=== PATIENT | female | born 1970 | race Caucasian/White ===

== ENCOUNTER 2023-03-21 08:05 | Outpatient (CLI) | payer BC, SELFPAY ==
--- NOTE | ~2023-03-21 | MR_ITS ---
MRI of the abdomen: Clinical indication: Postcholecystectomy biliary dilatation. Technique: Coronal SSFSE ARC, WATER:coronal LAVA-FLEX, Coronal 2D FIESTA FatSat, Axial SSFSE BH ARC, Axial 3D DualEcho BH, Axial SSFSE-IR, Axial DWI b=500, Axial 2D FIESTA FatSat, pre and dynamic postco ntrast Axial LAVA ARC, postcontrast Coronal In and Opposed phase LAVA FLEX. Following intravenous adm inistration of 20 cc MultiHance gadolinium, T1-weighted fat-sat imaging was performed in the axial an d coronal planes. Findings: Gallbladder is absent, compatible prior cholecystectomy. The common bile duct is minimally dilated at 7 mm. No filling defects are seen within the CBD. No evidence of intrahepatic biliary duct al dilatation. The pancreatic duct is normal in size. Liver, spleen, pancreas, adrenals, kidneys appear normal. The aorta and the paraaortic regions appear normal. No abnormal postcontrast enhancement seen. Impression: Minimal prominence of the common bile duct is presumably related to prior cholecystectomy. No other significant findings. Reviewed, dictated and finalized at location . Impression: Minimal prominence of the common bile duct is presumably related to prior prasad cystectomy. No other significant findings.
== END 2023-03-21 08:06 | disposition home or self-care (01) ==
LOC: CHSIMG 08:09
PROVIDERS: PCP Internal Medicine; Visit Provider Internal Medicine
DX: K82.8 Other specified diseases of gallbladder (principal); Z90.49 Acquired absence of other specified parts of digestive tract
CPT/HCPCS: 74183; 76376; A9577

== ENCOUNTER 2023-07-03 13:03 | Outpatient (CLI) | payer BC, SELFPAY ==
--- NOTE | ~2023-07-03 | XR_ITS ---
AP view of the pelvis and AP and lateral views of the left hip Clinical history: Pain Findings: No acute fracture or dislocation is seen. Osseous alignment is anatomic. Bilateral hip and SI joint spaces are preserved. Soft tissues are unremarkable. Impression: No significant abnormality is seen. Reviewed, dictated and finalized at [facility]. Impression: No significant abnormality is seen.
--- NOTE | ~2023-07-03 | XR_ITS ---
XR lumbar spine min 4V DATE: 07/03/2023 13:29 INDICATION: Spondylosis without myelopathy or radiculopathy TECHNIQUE: Standing AP and lateral views including standing flexion and extension lateral views COMPARISON: None FINDINGS: There is mild lumbar dextroscoliosis. There is moderately severe degenerative disc disease at L1-2, moderate degenerative disc disease at L 2-3, L3-4. No fracture or bone destruction is detected. There is degenerative change of the apophyseal joints, with associated mild anterolisthesis at L4-5 a nd L5-S1. The sacroiliac joints are normal. Status post cholecystectomy. IMPRESSION: Mild dextroscoliosis and moderate degenerative change Reviewed, dictated and finalized at location B.
== END 2023-07-03 13:04 | disposition home or self-care (01) ==
PROVIDERS: PCP Internal Medicine; Visit Provider Neurological Surgery
DX: M47.816 Spondylosis without myelopathy or radiculopathy, lumbar region (principal); M41.86 Other forms of scoliosis, lumbar region
CPT/HCPCS: 72110; 73502

== ENCOUNTER 2023-09-11 00:37 | Day surgery (SDC) | payer BC, SELFPAY ==
[2023-08-10 09:59] VITALS: BMI 40.0
--- NOTE | 2023-08-24 10:15 | SUR.PREOP ---
Patient called regarding upcoming procedure. patient did not answer- message left with arrival time.
--- NOTE | 2023-08-27 10:55 | PC.NURSE ---
Called and spoke with patient regarding rescheduled procedure. Updated patient with new date and times. Patient denies any changes to medications, allergies, or health history. No questions at this time.
--- NOTE | 2023-09-09 09:25 | SUR.PREOP ---
Patient called regarding upcoming procedure. Reviewed preop instructions, appointment times, and procedure prep.
--- NOTE | 2023-09-10 16:15 | PM.HPGS ---
History of Present Illness History of Present Illness Consent: Risks, benefits, and alternatives have been discussed and questions answered. Patient agrees to proceed with procedure. Chief complaint: GERD,fam hx of other disease of digestive system Narrative: Terri Alonso is a 53 year old female Who is here for investigation of epigastric pain in the right upper quadrant pain for the past 3 or 4 months. Review of Systems Review of Systems: All systems reviewed & are unremarkable except as noted in HPI and below PMFSH Past Medical History Medical History (Updated 09/11/23 @ 12:45 by Joaquín Smith MD) HTN (hypertension) Surgical History Surgical History (Updated 09/11/23 @ 12:46 by Joaquín Smith MD) H/O colonoscopy Family History Family History Mother Hypertension Family history of coronary artery disease Grandparent Diabetes mellitus Father No problems noted. Sibling No problems noted. Other Family history of cardiovascular disease Social History Social History Smoking status: Never smoker Alcohol intake: current Alcohol use details: social Substance use: never Substance use type: does not use Living arrangements: alone Meds Home Medications and Allergies Home Medications Medication Instructions Recorded Confirmed Type amlodipine 5 mg tablet 5 mg PO DAILY 07/03/23 08/10/23 History losartan 100 1 tablet PO DAILY 07/03/23 08/10/23 History mg-hydrochlorothiazide 25 mg tablet potassium chloride 10 mEq 10 meq PO DAILY 07/03/23 08/10/23 History capsule,extended release tramadol 50 mg tablet 50 mg PO Q6H PRN Pain 07/03/23 08/10/23 History Allergies Allergy/AdvReac Type Severity Reaction Status Date / Time No Known Allergies Allergy Verified 09/11/23 12:35 Exam Const: General: alert Orientation/consciousness: patient oriented x3 Resp: Auscultation: clear to auscultation bilaterally Cardio: Rhythm: regular rhythm GI: GI Palp: Yes Soft to palpation and No Tenderness to palpation present (GI) Neuro: General: patient oriented x3 Assessment and Plan Assessment and plan (1) Epigastric pain: Code(s): R10.13 - Epigastric pain Status: Acute Assessment and Plan: EGD with possible biopsy or dilatation or cautery.
[2023-09-11] MEDS: LACTATED RINGERS 1,000 ML 150 ML IV CONT (12:34)
[2023-09-11 12:36] VITALS: BP 130/79; PULSE 87; RESP 18; TEMP 36.1; O2SAT 96
--- NOTE | 2023-09-11 12:45 | WPDANESEPPF ---
Anes - Initial Pre Proc Eval Procedure: Operation Date: 09/11/23 13:30 Proposed Procedures p Esophagogastroduodenoscopy - Bennie Valladares MD Date/Time: 09/11/23 12:45 Surgeon: Bennie Valladares MD Pre Op Diagnosis: GERD,fam hx of other disease of digestive system Patient Data Age: 53 Gender: F Height: 1.75 m Weight: 120.1 kg Last Vital Signs Temp 36.1 C L 09/11/23 12:36 Pulse 87 09/11/23 12:36 Resp 18 09/11/23 12:36 BP 130/79 09/11/23 12:36 Pulse Ox 96 09/11/23 12:36 O2 Del Method Room Air 09/11/23 12:36 Allergies Allergy/AdvReac Type Severity Reaction Status Date / Time No Known Allergies Allergy Verified 09/11/23 12:35 Home Medications Medication Instructions Recorded Confirmed Type amlodipine 5 mg tablet 5 mg PO DAILY 07/03/23 08/10/23 History losartan 100 1 tablet PO DAILY 07/03/23 08/10/23 History mg-hydrochlorothiazide 25 mg tablet potassium chloride 10 mEq 10 meq PO DAILY 07/03/23 08/10/23 History capsule,extended release tramadol 50 mg tablet 50 mg PO Q6H PRN Pain 07/03/23 08/10/23 History Patient hx anesthesia problems: none Family hx anesthesia problems: none Results Review: All pre-operative results and documents have been reviewed as part of the pre-operative evaluation. [facility] Past Medical History Medical History (Updated 09/11/23 @ 12:45 by Joaquín Smith MD) HTN (hypertension) Surgical History Surgical History (Updated 09/11/23 @ 12:46 by Joaquín Smith MD) H/O colonoscopy Family History Family History Mother Hypertension Family history of coronary artery disease Grandparent Diabetes mellitus Father No problems noted. Sibling No problems noted. Other Family history of cardiovascular disease Social History Social History Smoking status: Never smoker Alcohol intake: current Alcohol use details: social Substance use: never Substance use type: does not use Living arrangements: alone Anes - Eval Final PreProcedure Day of Procedure 09/11/23 12:45 Patient weight: obese Heart: regular rate and rhythm Lungs: clear to auscultation Airway: Mallampati scale class II Neurological: alert and oriented Last oral intake: >/= 8 hours ASA classification: III Emergent: no Anesthetic plan: proceed Anesthesia type and monitoring: general GIVS and standard monitoring Results Review: All pre-operative results and documents have been reviewed as part of the pre-operative evaluation. Informed Consent: The patient's anesthetic plan and its attendant risks and benefits were discussed with the patient/family/POA. Questions were solicited and answers provided to the satisfaction of the patient/family/POA.
[2023-09-11 13:26] VITALS: BP 128/80; PULSE 76; RESP 18; O2SAT 97
[2023-09-11 13:36] VITALS: BP 133/87; PULSE 73; RESP 18; O2SAT 98
[2023-09-11 13:46] VITALS: BP 133/81; PULSE 79; RESP 17; O2SAT 99
== END 2023-09-11 14:23 | disposition home or self-care (01) ==
PROVIDERS: PCP Internal Medicine; Visit Provider Internal Medicine Gastroenterology
PROC: 0DJ08ZZ Inspection of Upper Intestinal Tract, Via Natural or Artificial Opening Endoscopic (ICD-10-PCS; CPT 43235; principal; 2023-09-11 13:30)
DX: K21.00 Gastro-esophageal reflux disease with esophagitis, without bleeding (principal); I10 Essential (primary) hypertension; E66.9 Obesity, unspecified; Z68.39 Body mass index [BMI] 39.0-39.9, adult
CPT/HCPCS: 43239; 87081; 88305; J2704; J7120

== ENCOUNTER 2023-10-20 07:20 | Outpatient (CLI) | payer BC, SELFPAY ==
--- NOTE | ~2023-10-20 | US_ITS ---
EXAMINATION: US pelvic complete w TV DATE: 10/20/2023 08:21 INDICATION: Postmenopausal bleeding Comparison:No prior studies for comparison. TECHNIQUE: Multiple transabdominal and endovaginal sonographic images of the pelvis performed. FINDINGS: The uterus measures 7.9 x 5.3 x 4.1 cm. There are small hypoechoic measuring up to 1.7 cm, likely, located nabothian cysts or fibroids. The endometrial complex measures 10 mm. The right ovary measures 2.7 x 1.5 x 2 cm and the left ovary measures 2 x 1.5 x 1.6 cm. There are sm all follicles in each ovary. Normal doppler signal in both ovaries. There is no free fluid in the pelvis. There are no abnormal masses seen on either side. IMPRESSION: 1. Hypoechoic masses at the cervix measuring up to 1.7 cm which may represent a complicated nabothian cysts or fibroids. Reviewed, dictated and finalized at location L. [facility]
== END 2023-10-20 07:21 | disposition home or self-care (01) ==
LOC: CHSIMG 07:22
PROVIDERS: PCP Internal Medicine; Visit Provider Internal Medicine
DX: N88.8 Other specified noninflammatory disorders of cervix uteri (principal); N93.8 Other specified abnormal uterine and vaginal bleeding
CPT/HCPCS: 76830; 76856

== ENCOUNTER 2023-12-25 15:17 | Outpatient (CLI) | payer BC, SELFPAY ==
[2023-12-25 16:37] LABS: Anion Gap 11 mmol/L (4-12); Blood Urea Nitrogen 16 mg/dL (7-18); Calcium 9.5 mg/dL (8.5-10.1); Carbon Dioxide 28 mmol/L (21-32); Chloride 101 mmol/L (98-108); Estimated Glomerular Filt Rate 55; Glucose 139 mg/dL (70-99); Osmolality Calculated 293 mOsm/kg (285-295); Potassium 3.5 mmol/L (3.5-5.1); Sodium 140 mmol/L (136-145)
== END 2023-12-25 15:18 | disposition home or self-care (01) ==
PROVIDERS: PCP Internal Medicine; Visit Provider Anesthesiology
DX: Z01.818 Encounter for other preprocedural examination (principal); Z79.899 Other long term (current) drug therapy
CPT/HCPCS: 36415; 80048

== ENCOUNTER 2024-01-01 01:21 | Day surgery (SDC) | payer BC, SELFPAY ==
[2023-12-23 14:06] VITALS: BMI 39.9
--- NOTE | 2023-12-23 14:12 | PC.NURSE ---
Report to the Outpatient Waiting Room, entrance under the green pavilion located off [facility], at time 6:30 on date 01/01/24. Planned Procedure Time: 8:30. Time changes happen often and if your time is changed the preop area will call you the afternoon before. - You and your visitor will be asked to self-screen and do not enter if you have any COVID symptoms. - A mask is optional within the hospital at this time. Patients may have clear liquids (water, carbonated beverages, clear teas, apple juice) until 3 hours prior to surgery with a maximum of 20 ounces. - No food from midnight until time of surgery Take the following medications with a SIP of water the morning of surgery: AMLODIPINE, GABAPENTIN IF NEEDED DO NOT STOP ANY OF YOUR OTHER PRESCRIPTION MEDICATIONS PRIOR TO SURGERY ?EXCEPT THE FOLLOWING Medications to discontinue per physician: VITAMINS/SUPPLEMENTS Date to take last dose: 12/28/23 Please no make-up, nail azeri, hairspray, perfume, deodorant, or body powder the day of surgery. No jewelry (including any body piercings) or valuables the day of surgery, leave them at home. Please take a shower or bath the night before, or the morning of, surgery with an antibacterial soap. Wear comfortable, loose fitting clothing. - Jewelry must be removed prior to entering the operating room. Rings and piercings that are not removed may be cut off. - The hospital will not accept responsibility for valuables. - Please leave all valuables, including medications, at home the day of surgery. If you are going home after surgery, a licensed public transit bus driver must drive you home. - NO public transportation without another adult if you receive anesthesia. - We recommend that an adult stay with you for 24 hours following discharge. - We also recommend that you do not drive, make important decision, drink alcoholic beverages, or take any drugs that were not prescribed by your health care provider for at least 24 hours after your discharge time. Follow any additional instructions given to you from your surgeon. If you or anyone in your household have experienced Covid symptoms in the past week, please notify your surgeon or the nurse liaison at the phone number below for possible testing. Telephone instructions given to BIA LEGER and asked if any additional questions and then verbalized understanding. Patient advised to call surgeon office or pre surgery nurse liaison [phone] if any additional questions.
--- NOTE | 2023-12-31 11:26 | WPDANESEPPF ---
Anes - Initial Pre Proc Eval Procedure: Operation Date: 01/01/24 10:00 Proposed Procedures p Hysteroscopy, Dilation and Curettage with Removal Endometrial Lesion if Necessary - Jv Lr MD Date/Time: 12/31/23 11:26 Surgeon: Jv Lr MD Pre Op Diagnosis: thick endometrial lining Patient Data Age: 53 Gender: F Height: 1.75 m Weight: 122.5 kg Allergies Allergy/AdvReac Type Severity Reaction Status Date / Time No Known Allergies Allergy Verified 01/14/24 08:15 Home Medications Medication Instructions Recorded Confirmed Type amlodipine 5 mg tablet 5 mg PO DAILY 07/03/23 01/01/24 History losartan 100 1 tablet PO DAILY 07/03/23 01/01/24 History mg-hydrochlorothiazide 25 mg tablet potassium chloride 10 mEq 10 meq PO DAILY 07/03/23 01/01/24 History capsule,extended release pantoprazole 40 mg tablet,delayed 40 mg PO QAM #30 tabs 09/11/23 01/01/24 Rx release gabapentin 300 mg capsule 300 mg PO DAILY 10/28/23 01/01/24 History magnesium 200 mg tablet 200 mg PO DAILY 10/28/23 01/01/24 History Patient hx anesthesia problems: none Family hx anesthesia problems: none Results Review: All pre-operative results and documents have been reviewed as part of the pre-operative evaluation. PENDING SALE TO [facility] Past Medical History Medical History History of chlamydia 1988 History of miscarriage HTN (hypertension) Surgical History Surgical History H/O colonoscopy H/O tubal ligation History of 3 sections History of cholecystectomy S/P hernia surgery Family History Family History Mother Hypertension Family history of coronary artery disease Grandparent Diabetes mellitus Father No problems noted. Sibling No problems noted. Other Alcoholism Breast cancer Cerebrovascular accident Family history of cardiovascular disease Social History Social History Smoking packs per day: 1 Smoking cigarettes per day: 20.0 Years smoked: 20 Smoking pack-years: 20.00 Smoking status: Former smoker Tobacco type: cigarettes Smoking end date: 09/28/12 Alcohol intake: current Alcohol use details: VERY RARE Substance use: never Substance use type: does not use Do You Feel Safe in your Home?: Yes Lack of Transportation: No Lack of Food: Never True Current Housing: I Have Housing Concerned About Future Housing: No Difficulty Paying Gas/Electric Bills: No Difficulty Paying for Meds: No Currently Unemployed: No Living arrangements: with family Spiritual care concerns: No Anes - Eval Final PreProcedure Day of Procedure 12/31/23 11:26 Patient weight: obese Heart: regular rate and rhythm Lungs: clear to auscultation Airway: Mallampati scale class II Neurological: alert and oriented Last oral intake: >/= 8 hours ASA classification: III Emergent: no Anesthetic plan: proceed Anesthesia type and monitoring: general GIVS and standard monitoring Results Review: All pre-operative results and documents have been reviewed as part of the pre-operative evaluation. Informed Consent: The patient's anesthetic plan and its attendant risks and benefits were discussed with the patient/family/POA. Questions were solicited and answers provided to the satisfaction of the patient/family/POA.
[2024-01-01 08:01] VITALS: BP 143/87; PULSE 90; RESP 20; TEMP 36.5; O2SAT 94
--- NOTE | 2024-01-01 08:37 | PM.IMHP ---
H&P: HPI History of Present Illness Date/Time: 01/01/24 08:37 Chief Complaint: Postmenopausal bleeding Narrative: Patient with postmenopausal bleeding. Pelvic ultrasound showed 10mm stripe. She was informed this is abnormally thickened and recommended for endometrial sampling and she has opted for dilation and curettage and hysteroscopy. [facility] Past Medical History Medical History History of chlamydia 1988 History of miscarriage HTN (hypertension) Surgical History Surgical History H/O colonoscopy H/O tubal ligation History of 3 sections History of cholecystectomy S/P hernia surgery Family History Family History Mother Hypertension Family history of coronary artery disease Grandparent Diabetes mellitus Father No problems noted. Sibling No problems noted. Other Alcoholism Breast cancer Cerebrovascular accident Family history of cardiovascular disease Social History Social History Smoking packs per day: 1 Smoking cigarettes per day: 20.0 Years smoked: 20 Smoking pack-years: 20.00 Smoking status: Former smoker Tobacco type: cigarettes Smoking end date: 09/28/12 Alcohol intake: current Alcohol use details: VERY RARE Substance use: never Substance use type: does not use Do You Feel Safe in your Home?: Yes Lack of Transportation: No Lack of Food: Never True Current Housing: I Have Housing Concerned About Future Housing: No Difficulty Paying Gas/Electric Bills: No Difficulty Paying for Meds: No Currently Unemployed: No Living arrangements: with family Spiritual care concerns: No Meds Home Medications and Allergies Home Medications Medication Instructions Recorded Confirmed Type amlodipine 5 mg tablet 5 mg PO DAILY 07/03/23 12/23/23 History losartan 100 1 tablet PO DAILY 07/03/23 12/23/23 History mg-hydrochlorothiazide 25 mg tablet potassium chloride 10 mEq 10 meq PO DAILY 07/03/23 12/23/23 History capsule,extended release pantoprazole 40 mg tablet,delayed 40 mg PO QAM #30 tabs 09/11/23 12/23/23 Rx release gabapentin 300 mg capsule 300 mg PO DAILY 10/28/23 12/23/23 History magnesium 200 mg tablet 200 mg PO DAILY 10/28/23 12/23/23 History Allergies Allergy/AdvReac Type Severity Reaction Status Date / Time No Known Allergies Allergy Verified 12/23/23 14:05 Assessment and Plan Assessment and plan (1) Postmenopausal bleeding: Code(s): N95.0 - Postmenopausal bleeding Status: Acute Assessment and Plan: Will proceed with dilation and curettage and hysteroscopy and removal of endometrial lesion if present.
--- NOTE | 2024-01-01 08:38 | WPDHPUPDATE1 ---
History and Physical Update Update Date/Time: 01/01/24 08:38 History and Physical has been reviewed, including an updated exam of the patient. There are NO changes in the patient's condition. Risks, benefits, and alternatives have been discussed and questions answered. Patient agrees to proceed with procedure.
[2024-01-01] MEDS: ACETAMINOPHEN 500 MG TABLET 1000 MG PO (09:01)
[2024-01-01] MEDS: LACTATED RINGERS 1,000 ML 30 ML IV CONT (09:05)
[2024-01-01] MEDS: ceFAZolin 3 GM/D5W 100 ML 100 ML IVPB (09:50)
[2024-01-01] MEDS: LIDOCAINE HCL 1% LOCAL INJ 10 ML VIAL INFILTRATE (10:09)
[2024-01-01 10:18] VITALS: BP 132/82; PULSE 93; RESP 14; O2SAT 94
--- NOTE | 2024-01-01 10:25 | W.PM.PROC2 ---
Procedure Note - Detailed Date of Procedure 01/01/24 Pre-op Diagnosis thick endometrial lining Post-op Diagnosis Same Procedure Performed Diagnostic hysteroscopy with dilation and curettage Surgeon Jv Lr MD Anesthesia MAC and Local Indications Postmenopausal bleeding Findings Uterine cavity normal Description of Procedure After informed consent was obtained patient was taken to the operating room and adequate IV sedation was administered. Attention was turned to the vagina. Speculum was inserted. Single-tooth tenaculum placed on the anterior lip of the cervix. 1% lidocaine was injected at cervicovaginal interface at 2,5,8,10 position. The uterus was sounded to 8 cm. The cervix was dilated to an 8 Agrawal dilator. The hysteroscope was inserted into the cavity. The findings were a normal uterine cavity. The hysteroscope was removed. The single-tooth tenaculum was removed hemostasis was noted at the tenaculum site. Sponge count correct. The patient taken to recovery in stable condition. Estimated Blood Loss 5 Drains No Packing No Pathology Yes (endometrial curettings) Complications No immediate complications Condition Stable Disposition Same day [facility] Billing Surgery - Charge Forward: Surgery Billing
[2024-01-01 10:30] VITALS: BP 143/92; PULSE 77; O2SAT 97
[2024-01-01 11:00] VITALS: BP 138/92; PULSE 67; O2SAT 97
[2024-01-01] MEDS: oxyCODONE HCL (*CRX) 5 MG TAB IR PO (11:07)
[2024-01-01 11:30] VITALS: BP 145/90; PULSE 69
== END 2024-01-01 11:42 | disposition home or self-care (01) ==
PROVIDERS: PCP Internal Medicine; Visit Provider Obstetrics & Gynecology
PROC: 0U5B8ZZ Destruction of Endometrium, Via Natural or Artificial Opening Endoscopic (ICD-10-PCS; CPT 58563; principal; 2024-01-01 10:00)
DX: N85.8 Other specified noninflammatory disorders of uterus (principal); N95.0 Postmenopausal bleeding; I10 Essential (primary) hypertension; Z87.891 Personal history of nicotine dependence; E66.9 Obesity, unspecified; Z68.41 Body mass index [BMI] 40.0-44.9, adult
CPT/HCPCS: 58558; 88305; A9270; J0690; J1100; J2250; J2405; J2704; J3010; J7120

== ENCOUNTER 2024-09-02 11:07 | Outpatient (CLI) | payer BC, SELFPAY ==
--- NOTE | ~2024-09-02 | US_ITS ---
EXAMINATION: US pelvic complete w TV INDICATION: Postmenopausal bleeding Comparison:Ultrasound dated 10/20/2023 TECHNIQUE: Multiple transabdominal and endovaginal sonographic images of the pelvis performed. FINDINGS: The uterus measures 8.6 x 4.2 x 5.4 cm. The endometrial complex measures 8 mm. There are complicated nabothian cyst measuring up to 2 cm. The right ovary measures 2.9 x 2.1 x 2.7 cm and the left ovary measures 2.1 x 1.9 x 1.8 cm. There ar e small follicles in each ovary. Normal doppler signal in both ovaries. There is no free fluid in the pelvis. There are no abnormal masses seen on either side. IMPRESSION: 1. Thickened endomtrial complex. The differential diagnosis includes endometrial hyperplasia, polyp a nd carcinoma. Biopsy is recommended. Reviewed, dictated and finalized at location B. [employer] [facility] IMPRESSION: 1. Thickened endomtrial complex. The differential diagnosis includes endometria l hyperplasia, polyp and carcinoma. Biopsy is recommended.
== END 2024-09-02 11:08 | disposition home or self-care (01) ==
LOC: MICIMG 11:07
PROVIDERS: PCP Obstetrics & Gynecology; Visit Provider Obstetrics & Gynecology
DX: R93.89 Abnormal findings on diagnostic imaging of other specified body structures (principal); N95.0 Postmenopausal bleeding
CPT/HCPCS: 76830; 76856

== ENCOUNTER 2025-02-22 08:18 | Outpatient (CLI) | payer BC, SELFPAY ==
--- NOTE | ~2025-02-22 | US_ITS ---
Pelvic ultrasound. Clinical History: Abnormal findings on diagnostic imaging Technique: Realtime transabdominal and transvaginal scanning of the pelvis was performed. Color flow Doppler and Doppler spectral analysis were performed. Findings: The uterus is anteverted. The endometrial stripe has a thickness of 5 mm. Possible subtle ill-defined submucosal and anterior wall intramural fibroids, largest measuring 2.1 cm in diameter.. Mildly complex cervical nabothian cysts present, measuring up to 1.5 cm in diameter. The right ovary measures 2.5 x 1.8 x 3.0 cm. No significant right ovarian or adnexal mass is seen. The left ovary measures 1.8 x 1.0 x 2.3 cm. No significant left ovarian or adnexal mass is seen. There is no evidence of free fluid in the cul de sac. Impression: Possible ill-defined uterine fibroids, as detailed above. Reviewed, dictated and finalized at [facility]. Impression: Possible ill-defined uterine fibroids, as detailed above.
== END 2025-02-22 08:19 | disposition home or self-care (01) ==
PROVIDERS: PCP Obstetrics & Gynecology; Visit Provider Obstetrics & Gynecology
DX: R93.89 Abnormal findings on diagnostic imaging of other specified body structures (principal)
CPT/HCPCS: 76830; 76856

== ENCOUNTER 2025-02-28 14:52 | Outpatient (CLI) | payer BC, SELFPAY ==
--- NOTE | ~2025-02-28 | XR_ITS ---
XR chest 2V Ordering provider: Dayron Francis MD History: 55 years Female with . URI, COUGH . Comparison: August 03, 2005 FINDINGS: MEDIASTINUM: The cardiac silhouette is not enlarged. LUNGS: No effusions or pneumothorax. Prominent bronchovascular markings in the lower lobes with minimal opacification suggestive of early bronchopneumonia. OTHER: No free air under the diaphragm. IMPRESSION: Prominent bibasilar bronchovascular markings with minimal opacification suggestive of bronchopneumoni a. Follow-up advised. Reviewed, dictated and finalized at location A. IMPRESSION: Prominent bibasilar bronchovascular markings with minimal opacification suggest john of bronchopneumonia. Follow-up advised.
--- OUTSIDE RECORDS SUMMARY | 2025-02-28 15:00 | XMS_ITS | Referral Summary ---
Author Organization [facility] Address [address] [place] [address] Care Team Providers Care Truck Service Manager Name Role Phone Dayron Francis MD Primary Care Provider + [phone] Encounters Date Type Department Care Team Description 02/23/2025 Patient Message [facility] [address] [facility] [address] [place] [address] Amilcar Page PA Referral Request 02/16/2025 Telephone [facility] [address] [place] [address] Braydno Marsh, Zakia 12/26/2024 11:45 AM CDT Office Visit [facility] [address] [facility] [address] [place] [address] Amilcar Page PA Short-term memory loss (Primary Dx); Perineural cysts; Tarlov cysts; Tinnitus aurium, bilateral; Intractable cluster headache syndrome, unspecified chronicity pattern; Syrinx of spinal cord (HCC); Status post cervical spinal fusion; Cervical spondylosis without myelopathy 12/15/2024 7:00 AM CDT - 12/15/2024 11:59 PM CDT Hospital Encounter [facility] Diagn[facility] [address] [place] [address] Tarlov cysts; Cervical spondylosis without myelopathy; Syrinx of spinal cord (HCC); Perineural cysts; Tinnitus aurium, bilateral; Intractable cluster headache syndrome, unspecified chronicity pattern; Short-term memory loss; Status post cervical spinal fusion Discharge Disposition: Discharge to home or self care 12/02/2024 Documentation [facility] [address] [facility] [address] [place] [address] Amilcar Page PA from Last 3 Months Allergies No known active allergies Medications potassium chloride ER 20 mEq CR tablet Take 1 tablet (20 mEq total) by mouth every morning Active losartan-hydroc hlorothiazide (HYZAAR) 100-25 mg per tablet Take 1 tablet by mouth every morning Active amLODIPine (NORVASC) 5 mg tablet Take 1 tablet (5 mg total) by mouth every morning Active topiramate (TOPAMAX) 50 mg tablet Take 1 tablet (50 mg total) by mouth every morning Active phentermine 37.5 mg capsule Take 1 capsule (37.5 mg total) by mouth every morning Active acetaminophen (TYLENOL) 325 mg tablet Take 2 tablets (650 mg total) by mouth every 6 (six) hours as needed for pain Active ASHWAELADIODHA ROOT EXTRACT ORAL Take by mouth daily Active calcium carb/vitamin D3/vit K1 (CALCIUM-VITAMI N D3-VITAMIN K ORAL) Take by mouth daily Active calcium carb,cit-mag cit,ox-D3 300 mg-150 mg- 400 unit tablet 4 Active collagen-biotin -ascorbic acid (Collagen 1500 Plus C) 500 mg-800 mcg- 50 mg capsule 4 Active ibuprofen (ADVIL,MOTRIN) 800 mg tablet 3 Active progesterone (PROMETRIUM) 100 mg capsule 4 Active multivitamin tabletIndicatio ns:Vitamin Deficiency Prevention Take 1 tablet by mouth applicator sprayer before breakfast Active acidophilus-pec tin, citrus 100 million cell-10 mg capsule Take by mouth applicator sprayer before breakfast Active UNABLE TO FIND Med Name: Mirica (PEA) 2-4 per Day *For nerve pain Active cyclobenzaprine (FLEXERIL) 10 mg tablet Take 1 tablet (10 mg total) by mouth 3 (three) times a day as needed Active Active Problems Problem Noted Date Diagnosed Date 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 Never 08/15/2024 Q2: How many drinks containi ng alcohol do you have on a typical day when you are drinking? Patient does not drink Q3: How often do you have si x or more drinks on one occasion? Never 08/15/2024 Personal Safety Answer Date Recorded Have you ever been in or are you currently in a harmful physical or emotional relationship or is someone making you feel afraid or unsafe? Denies 08/15/2024 Comments No Sex and Gender Information Value Date Recorded Sex Assigned at Not on file Legal Sex Female 1:52 AM RESOURCE TECHNICIAN Gender Identity Female 10/07/2024 5:41 PM RESOURCE TECHNICIAN Sexual Orientation Not on file Last Filed Vital Signs Vital Sign Reading Time Taken Comments Blood Pressure 114/74 12/26/2024 11:47 AM CDT Pulse 97 12/26/2024 11:47 AM CDT Temperature 36.6 C (97.9 F) 08/16/2024 11:31 AM RESOURCE TECHNICIAN Respiratory Rate 14 10/25/2024 11:27 AM RESOURCE TECHNICIAN Oxygen Saturation 94% 12/26/2024 11:47 AM CDT Inhaled Oxygen Concentration - - Weight 117.9 kg (260 lb) 12/26/2024 11:47 AM CDT Height 175.3 cm (5' 9) 12/26/2024 11:47 AM CDT Body Mass Index 38.4 12/26/2024 11:47 AM CDT Plan of Treatment Not on file Medical Devices Implanted Type Area Chief Physical Therapist Device Identifier Shelf Expiration Date Model / Serial / Lot One Parts [employer] Allograft Bone Putty 2.5cc 700- - [id number] Implanted:Qty: 1 on 08/15/2024 by Debbie Restrepo MD at [facility] N/A: Spine Cervical [employer] Inc [id number] 11/25/2026 700-025 / / [id number] Orthofix Spinal Implants Cage Spinal Cervical 5 Degree Acdf Mini Construx [id number] Titanium 37-7005sp - [id number] Implanted:Qty: 1 on 08/15/2024 by Debbie Restrepo MD at [facility] N/A: Spine Cervical Orth[employer]ix Spinal Implants 01/14/2026 37-7005SP / / 002 Orthofix Spinal Implants Cage Spinal Cervical 5 Degree Acdf Mini Construx [id number] Titanium 37-7005sp - [id number] Implanted:Qty: 1 on 08/15/2024 by Debbie Restrepo MD at [facility] N/A: Spine Cervical Orthofix Spinal Implants 07/10/2026 37-7005SP / / 003 Orthofix Spinal Implants Cage Spinal Cervical 5 Degree Acdf Mini Construx [id number] Titanium 37-7006sp - [id number] Implanted:Qty: 1 on 08/15/2024 by Debbie Restrepo MD at [facility] N/A: Spine Cervical Orthofix Spinal Implants 08/27/2027 37-7006SP / / 012 [employer]c Plate Cervical Spine 3-Level 45mm 300-0345 - [id number] Implanted:Qty: 1 on 08/15/2024 by Debbie Restrepo MD at [facility] N/A: Spine Cervical [employer] 300-0345 / / [employer]av[employer] Llc Screw Self Drilling Variable 4.0x14mm [id number] - [id number] Implanted:Qty: 8 on 08/15/2024 by Debbie Restrepo MD at [facility] N/A: Spine Cervical [employer]c [id number] / / Procedures Procedure Name Priority Date/Time Associated Diagnosis Comments EMG/NCV Routine 12/15/2024 8:10 AM CDT Tarlov cysts Cervical spondylosis without myelopathy Syrinx of spinal cord (HCC) Perineural cysts Tinnitus aurium, bilateral Intractable cluster headache syndrome, unspecified chronicity pattern Short-term memory loss Status post cervical spinal fusion from Last 3 Months Results * EMG/NCV - (12/15/2024 8:10 AM CDT) Anatomical Region Laterality Modality EMG Impressions 12/15/2024 8:56 AM CDT No abnormalities noted on the above study. It should be noted that a normal EMG examination does not entirely rule out the possibility of a radiculopathy. Joaquín Orozco M.D., Ph.D. To review tabular data please click on the NEUROLOGY-RESULTS link below. Dictation completed by [employer] software. Student Assistance Counselor variances may occur. Narrative 12/15/2024 8:56 AM CDT NCV/EMG REPORT REFERRING PHYSICIAN: Amilcar Page PA INDICATION: Query polyneuropathy. Query lumbosacral radiculopathy. The procedure and possible complications were explained to the patient and a verbal consent was obtained. The temperature was maintained at 30 C or higher in the feet and 32 C or higher in the hands for nerve conduction studies unless otherwise stated. FINDINGS: The distal motor latencies, conduction velocities and CMAP amplitudes of the right and left peroneal and tibial nerves are normal. The distal sensory latencies and snap amplitudes of the right and left sural nerves are normal. No abnormalities noted on EMG examination of selected muscles in the left lower extremity, currently her most symptomatic side. Muscles examined included the left tibialis anterior, medial gastrocnemius, peroneus longus, vastus medialis and short head of the biceps femoris. Amilcar KEITH NEUROLOGY ORDERABLES Eloise l Result from Last 3 Months Insurance [facility] [place]PO [place] Advance Directives For more information, please contact: [phone] * Full Code (Latest Code Status on File) Date Activated Date Inactivated Comments 08/15/2024 7:43 PM 08/16/2024 4:37 PM Care Teams Truck Service Manager Relationship Specialty Start Date End Date Dayron Francis MD [address] [place] [address] PCP - General Internal Medicine 08/15/24
--- OUTSIDE RECORDS SUMMARY | 2025-02-28 15:00 | XMS_ITS | Clinical Summary ---
Author Organization [facility] Address [address] [place] [address] Care Team Providers Care Director Of Annual Giving Name Role Phone Dayron Francis MD Primary Care Provider + [phone] Allergies No known active allergies Medications potassium [...] (six) hours as needed for pain Active ASHWAGANDHA ROOT EXTRACT ORAL Take by mouth daily [...] Deficiency Prevention Take 1 tablet by mouth conductor/brakeman before breakfast Active acidophilus-pec tin, citrus 100 million cell-10 mg capsule Take by mouth conductor/brakeman before breakfast Active UNABLE TO FIND Med Name: Mirica (PEA) 2-4 per Day *For nerve pain Active cyclobenzaprine (FLEXERIL) 10 mg tablet Take 1 tablet (10 mg total) by mouth 3 (three) times a day as needed Active Active Problems Problem Noted Date Diagnosed Date 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 Cervical spondylosis without myelopathy 07/20/20 24 Encounters Date Type Department Care Team Description 02/23/2025 Patient Message [facility] [address] [place] [address] Amilcar Page PA Referral Request 02/16/2025 Telephone [facility] Floor [address] [place] [address] Braydon Marsh RMA 12/26/2024 11:45 AM CDT Office Visit [facility] [address] [place] [address] Amilcar Page PA Short-term memory loss (Primary Dx); Perineural cysts; Tarlov cysts; Tinnitus aurium, bilateral; Intractable cluster headache syndrome, unspecified chronicity pattern; Syrinx of spinal cord (HCC); Status post cervical spinal fusion; Cervical spondylosis without myelopathy 12/15/2024 7:00 AM CDT - 12/15/2024 11:59 PM CDT Hospital Encounter [facility] Diagnostics [address] [place] [address] Tarlov cysts; Cervical spondylosis without myelopathy; Syrinx of spinal cord (HCC); Perineural cysts; Tinnitus aurium, bilateral; Intractable cluster headache syndrome, unspecified chronicity pattern; Short-term memory loss; Status post cervical spinal fusion Discharge Disposition: Discharge to home or self care 12/02/2024 Documentation [facility] [address] [facility] [address] [place] [address] Amilcar Page PA from Last 3 Months Surgical History Surgery Date Site/Laterality Comments CHOLECYSTECTOMY 09/28/2013 - 09/27/2014 HERNIA REPAIR 09/28/2012 - 09/27/2013 umblicial SECTION x3 (1986, 1992, 2002) ANTERIOR FUSION CERVICAL SPINE 09/28/2023 - 09/27/2024 C4-7 - Dr. Restrepo Medical History Medical History Date Comments Hypertension Anxiety Depression Family History Medical History Relation Name Comments Diabetes Maternal Grandmother Hypertension Mother Stroke Paternal Grandmother Breast cancer Sister Relation Name Status Comments Maternal Grandmother Mother Paternal Grandmother Sister Social History Tobacco Use Types Packs/Day Years [...] on file Legal Sex Female 1:52 AM LOUVER MORTISER OPERATOR Gender Identity Female 10/07/2024 5:41 PM LOUVER MORTISER OPERATOR Sexual Orientation Not on file Obstetrics History Last Filed Vital Signs Vital Sign Reading Time Taken Comments Blood Pressure 114/74 12/26/2024 11:47 AM CDT Pulse 97 12/26/2024 11:47 AM CDT Temperature 36.6 C (97.9 F) 08/16/2024 11:31 AM LOUVER MORTISER OPERATOR Respiratory Rate 14 10/25/2024 11:27 AM LOUVER MORTISER OPERATOR Oxygen Saturation 94% 12/26/2024 11:47 AM CDT Inhaled Oxygen Concentration - - Weight 117.9 kg (260 lb) 12/26/2024 11:47 AM CDT Height 175.3 cm (5' 9) 12/26/2024 11:47 AM CDT Body Mass Index 38.4 12/26/2024 11:47 AM CDT Plan of Treatment Health Maintenance Due Date Last Done Comments Cervical Cancer Screening 1970 Colon Cancer Screening-Colonoscopy 1970 Depression Screening 1970 Hepatitis C Screening 1970 Hepatitis B Screening 01/06/1988 Regular Well Visit/Exam 18-64 01/06/1988 Influenza Vaccine (Season Ended) 2025 Breast Cancer Screening-Mammogram 11/29/2025 11/29/2024, 11/29/2024 DTaP/Tdap/Td Vaccine (2 - Td or Tdap) 10/15/2033 10/15/2023 Zoster Vaccine Completed 01/18/2024, 10/15/2023 Pneumococcal vaccine <65 Aged Out No longer eligible based on patient's age to complete this topic Medical Devices Implanted Type Area Fountain Pen Turner Device Identifier Shelf Expiration Date Model / Serial / Lot [employer] Inc Allograft Bone Putty 2.5cc 700-025 - [id number] Implanted:Qty: 1 on 08/15/2024 by Debbie Restrepo MD at [facility] N/A: Spine Cervical [employer] Inc [id number] 11/25/2026 700-025 / / [id number] Orthofix Spinal Implants Cage Spinal Cervical 5 Degree Acdf Mini Construx [id number] Titanium 37-7005sp - [id number] Implanted:Qty: 1 on 08/15/2024 by Debbie Restrepo MD at [facility] N/A: Spine Cervical Orth[employer]ix Spinal Implants 01/14/2026 37-7005SP / / 002 Orthofix Spinal Implants Cage Spinal Cervical 5 Degree Acdf Mini Construx [id number] Titanium 37-7005sp - [id number] Implanted:Qty: 1 on 08/15/2024 by Debbie Restrepo MD at [facility] N/A: Spine Cervical Orth[employer]ix Spinal Implants 07/10/2026 37-7005SP / / 003 Orthofix Spinal Implants Cage Spinal Cervical 5 Degree Acdf Mini Construx [id number] Titanium 37-7006sp - [id number] Implanted:Qty: 1 on 08/15/2024 by Debbie Restrepo MD at [facility] N/A: Spine Cervical Orth[employer]ix Spinal Implants 08/27/2027 37-7006SP / / 012 [employer] Llc Plate Cervical Spine 3-Level 45mm 300-0345 - [id number] Implanted:Qty: 1 on 08/15/2024 by Debbie Restrepo MD at [facility] N/A: Spine Cervical Zavation [facility] 300-0345 / / Zavation [facility] Screw Self Drilling Variable 4.0x14mm 301-4724 - [id number] Implanted:Qty: 8 on 08/15/2024 by Debbie Restrepo MD at [facility] N/A: Spine Cervical Zavation [facility] [id number] / / Procedures Procedure Name Priority Date/Time [...] the NEUROLOGY-RESULTS link below. Dictation completed by [employer] software. Loss Prevention Consultant variances may occur. Narrative 12/15/2024 8:56 AM [...] l Result from Last 3 Months Insurance [place] Advance Directives For more information, please contact: [phone] * Full Code (Latest Code Status on File) Date Activated Date Inactivated Comments 08/15/2024 7:43 PM 08/16/2024 4:37 PM Care Teams Director Of Annual Giving Relationship Specialty Start Date End Date Dayron Francis MD [address] [place] [address] PCP - General Internal Medicine 08/15/24
--- OUTSIDE RECORDS SUMMARY | 2025-02-28 15:00 | XMS_ITS | Encounter Summary ---
Author Organization [facility] Address [address] [place] [address] Care Team Providers Care Legal Examiner Name Role Phone Dayron Francis MD Primary Care Provider + [phone] Reason for Referral * Consultation (Routine) - Pending Review Specialty Diagnoses / Procedures Referred By Contac t Referred To Contact Neurosurgery Diagnoses Perineural cysts Tarlov cysts Amilcar Page PA [address] [place] [address] Phone: tel: fax: Peter Sampson MD [address] [facility] [address] [place] [address] Phone: tel: fax: Referral ID Status Reason Start Date Expiration Date Visits Requested Visits Authorized [id number] Pending Review Specialty Services Required 02/23/2025 03/25/2026 3 3 Question Answer Please select the performing region: External Order [171] To provider: PETER SAMPSON [[id number]] # of visits: 3 Comments Neurosurgery referral; Tarlov cyst Encounter Details Date Type Department Care Team (Late st Contact Info) Description 02/23/2025 Patient Message [facility] [address] [place] [address] Amilcar Page PA [address] [place] [address] Referral Request Social History Tobacco Use Types Packs/Day Years Used Date Smoking Tobacco: Former Cigarettes Smokeless Tobacco: Never AUDIT-C Answer Date Recorded Q1: How often [...] on file Legal Sex Female 1:52 AM 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 Gender Identity Female 10/07/2024 5:41 PM FOREIGN 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 Sexual Orientation Not on file documented as of this encounter Plan of Treatment Scheduled Referrals Name Type Priority Associated Diagnoses Order Schedule Ambulatory referral to Neurosurgery Outpatient Referral Routine Perineural cysts Tarlov cysts 1 Occurrences starting 02/23/2025 until 02/23/2026 documented as of this encounter Visit Diagnoses Diagnosis Perineural cysts- Primary Mononeuritis of unspecified site Tarlov cysts Mononeuritis of unspecified site documented in this encounter Care Teams Legal Examiner Relationship Specialty Start Date End Date Dayron Francis MD [address] [place] [address] PCP - General Internal Medicine 08/15/24 documented as of this encounter
[2025-02-28 15:13] LABS: Hematocrit 41.8 % (35.0-49.0); Hemoglobin 13.6 g/dL (12.0-15.0); Mean Corpuscular HGB Conc 32.5 g/dL (32-36); Mean Corpuscular Hemoglobin 29.9 pg (27.0-31.0); Mean Corpuscular Volume 91.9 fL (78.0-102.0); Platelet Count Result 254 K/mm3 (150-420); Red Blood Count 4.55 M/mm3 (4.20-5.40); Red Cell Distribution Width 12.2 % (11.6-14.4); White Blood Count 14.2 K/mm3 (4.8-10.8)
== END 2025-02-28 14:53 | disposition home or self-care (01) ==
PROVIDERS: PCP Internal Medicine; Visit Provider Internal Medicine
DX: J06.9 Acute upper respiratory infection, unspecified (principal); R05.9 Cough, unspecified; R91.8 Other nonspecific abnormal finding of lung field
CPT/HCPCS: 36415; 71046; 85027

== ENCOUNTER 2025-03-06 10:30 | Outpatient (CLI) | payer BC, SELFPAY ==
--- NOTE | ~2025-03-06 | XR_ITS ---
Clinical Indication: Pneumonia PA and lateral views of the chest: Comparison: 02/28/2025 Findings: The lungs are clear, without evidence of focal consolidation or pleural effusion. Cardiome diastinal silhouette is within normal limits. Bones and soft tissues are unremarkable. Impression: Normal chest. Reviewed, dictated and finalized at location . Impression: Normal chest.
[2025-03-06 10:50] LABS: Hematocrit 42.8 % (35.0-49.0); Hemoglobin 14.1 g/dL (12.0-15.0); Mean Corpuscular HGB Conc 32.9 g/dL (32-36); Mean Corpuscular Hemoglobin 30.5 pg (27.0-31.0); Mean Corpuscular Volume 92.6 fL (78.0-102.0); Mean Platelet Volume 8.9 fl (9.2-11.8); Platelet Count Result 311 K/mm3 (150-420); Red Blood Count 4.62 M/mm3 (4.20-5.40); Red Cell Distribution Width 12.3 % (11.6-14.4); White Blood Count 13.7 K/mm3 (4.8-10.8)
[2025-03-06 11:06] LABS: Alanine Aminotransferase 31 U/L (6-35); Albumin Level 3.7 g/dL (3.5-5.1); Alkaline Phosphatase 100 U/L (38-126); Anion Gap 5 mmol/L (4-12); Aspartate Amino Transferase 27 U/L (14-36); Bilirubin,Total 0.3 mg/dL (0.2-1.3); Blood Urea Nitrogen 27 mg/dL (7-17); Calcium 9.2 mg/dL (8.4-10.2); Carbon Dioxide 27 mmol/L (22-30); Chloride 106 mmol/L (98-107); Estimated Glomerular Filt Rate > 60; Glucose 200 mg/dL (65-110); Osmolality Calculated 297 mOsm/kg (285-295); Potassium 3.9 mmol/L (3.4-5.0); Sodium 138 mmol/L (137-145); Total Protein 6.7 g/dL (6.3-8.2)
--- OUTSIDE RECORDS SUMMARY | 2025-03-06 11:48 | XMS_ITS | Referral Summary ---
Author Organization [facility] Address [address] [place] [address] Care Team Providers Care Senior Qualitative Researcher Name Role Phone Dayron Francis MD Primary Care Provider + [phone] Encounters Date Type Department Care Team Description 02/16/2025 Telephone [facility] [address] [facility] [address] [place] [address] Braydon Marsh, Zakia 12/26/2024 11:45 AM CDT Office Visit [facility] with [facility] [address] [facility] [address] [place] [address] Amilcar Page PA Short-term memory loss (Primary Dx); Perineural cysts; Tarlov cysts; Tinnitus aurium, bilateral; Intractable cluster headache syndrome, unspecified chronicity pattern; Syrinx of spinal cord (HCC); Status post cervical spinal fusion; Cervical spondylosis without myelopathy 12/15/2024 7:00 AM CDT - 12/15/2024 11:59 PM CDT Hospital Encounter [facility] Neuro Diagnostics [address] [place] [address] Tarlov cysts; Cervical spondylosis without myelopathy; Syrinx of spinal cord (HCC); Perineural cysts; Tinnitus aurium, bilateral; Intractable cluster headache syndrome, unspecified chronicity pattern; Short-term memory loss; Status post cervical spinal fusion Discharge Disposition: Discharge to home or self care from Last 3 Months Allergies No known [...] Deficiency Prevention Take 1 tablet by mouth welding robot operator before breakfast Active acidophilus-pec tin, citrus 100 million cell-10 mg capsule Take by mouth welding robot operator before breakfast Active UNABLE TO FIND Med [...] on file Legal Sex Female 1:52 AM HEDIS COORDINATOR Gender Identity Female 10/07/2024 5:41 PM HEDIS COORDINATOR Sexual Orientation Not on file Last Filed Vital Signs Vital Sign Reading Time Taken Comments Blood Pressure 114/74 12/26/2024 11:47 AM CDT Pulse 97 12/26/2024 11:47 AM CDT Temperature 36.6 C (97.9 F) 08/16/2024 11:31 AM HEDIS COORDINATOR Respiratory Rate 14 10/25/2024 11:27 AM HEDIS COORDINATOR Oxygen Saturation 94% 12/26/2024 11:47 AM CDT Inhaled Oxygen Concentration - - Weight 117.9 kg (260 lb) 12/26/2024 11:47 AM CDT Height 175.3 cm (5' 9) 12/26/2024 11:47 AM CDT Body Mass Index 38.4 12/26/2024 11:47 AM CDT Plan of Treatment Not on file Medical Devices Implanted Type Area Signal Operator Linguist Device Identifier Shelf Expiration Date Model / Serial / Lot [employer] Inc Allograft Bone Putty 2.5cc 700-025 - [id number] Implanted:Qty: 1 on 08/15/2024 by Debbie Restrepo MD at [facility] N/A: Spine Cervical [employer] Inc [id number] 11/25/2026 700-025 / / [id number] Orthofix Spinal Implants Cage Spinal Cervical 5 Degree Acdf Mini Construx [id number] Titanium 37-7005sp - [id number] Implanted:Qty: 1 on 08/15/2024 by Debbie Restrepo MD at [facility] N/A: Spine Cervical Orthofix Spinal Implants 01/14/2026 37-7005SP / / 002 Orthofix Spinal Implants Cage Spinal Cervical 5 Degree Acdf Mini Construx [id number] Titanium 37-7005sp - [id number] Implanted:Qty: 1 on 08/15/2024 by Debbie Restrepo MD at [facility] N/A: Spine Cervical Orthofix Spinal Implants 07/10/2026 37-7005SP / / 003 Orthofix Spinal Implants Cage Spinal Cervical 5 Degree Acdf Mini Construx [id number] Titanium 37-7006sp - [id number] Implanted:Qty: 1 on 08/15/2024 by Debbie Restrepo MD at [facility] N/A: Spine Cervical Orth[employer]ix Spinal Implants 08/27/2027 37-7006SP / / 012 [employer] Plate Cervical Spine 3-Level 45mm 300-0345 - [id number] Implanted:Qty: 1 on 08/15/2024 by Debbie Restrepo MD at [facility] N/A: Spine Cervical [employer] 300-0345 / / [employer] Llc Screw Self Drilling Variable 4.0x14mm [id number] - [id number] Implanted:Qty: 8 on 08/15/2024 by Debbie Restrepo MD at [facility] N/A: Spine Cervical [employer] [id number] / / Procedures Procedure Name Priority Date/Time [...] the NEUROLOGY-RESULTS link below. Dictation completed by [employer] software. Wool Spotter variances may occur. Narrative 12/15/2024 8:56 AM [...] Advance Directives For more information, please contact: [phone] * Full Code (Latest Code Status on File) Date Activated Date Inactivated Comments 08/15/2024 7:43 PM 08/16/2024 4:37 PM Care Teams Senior Qualitative Researcher Relationship Specialty Start Date End Date Dayron Francis MD [address] [place] [address] PCP - General Internal Medicine 08/15/24
--- OUTSIDE RECORDS SUMMARY | 2025-03-06 11:48 | XMS_ITS | Clinical Summary ---
Author Organization [facility] Address [address] [place] [address] Care Team Providers Care Corporate Officer Name Role Phone Dayron Farncis MD Primary Care Provider + [phone] Allergies No known active allergies Medications potassium [...] Deficiency Prevention Take 1 tablet by mouth search engine optimization analyst before breakfast Active acidophilus-pec tin, citrus 100 million cell-10 mg capsule Take by mouth search engine optimization analyst before breakfast Active UNABLE TO FIND Med Name: Mirica (PEA) 2-4 per Day *For nerve pain Active cyclobenzaprine (FLEXERIL) 10 mg tablet Take 1 tablet (10 mg total) by mouth 3 (three) times a day as needed Active Active Problems Problem Noted Date Diagnosed Date 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 Cervical spondylosis without myelopathy 07/20/20 24 Encounters Date Type Department Care Team Description 02/16/2025 Telephone [facility] [address] [place] [address] Braydon Marsh, DEXTER 12/26/2024 11:45 AM CDT Office Visit [facility] with [facility] [address] [place] [address] Amilcar Page PA Short-term memory loss (Primary Dx); Perineural cysts; Tarlov cysts; Tinnitus aurium, bilateral; Intractable cluster headache syndrome, unspecified chronicity pattern; Syrinx of spinal cord (HCC); Status post cervical spinal fusion; Cervical spondylosis without myelopathy 12/15/2024 7:00 AM CDT - 12/15/2024 11:59 PM CDT Hospital Encounter [facility] [address] [place] [id number] Tarlov cysts; Cervical spondylosis without myelopathy; Syrinx of spinal cord (HCC); Perineural cysts; Tinnitus aurium, bilateral; Intractable cluster headache syndrome, unspecified chronicity pattern; Short-term memory loss; Status post cervical spinal fusion Discharge Disposition: Discharge to home or self care from Last 3 Months Surgical History Surgery [...] on file Legal 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 Gender Identity Female 10/07/2024 5:41 PM [employer] COMMISSIONER Sexual Orientation Not on file Obstetrics History Last Filed Vital Signs Vital Sign Reading Time Taken Comments Blood Pressure 114/74 12/26/2024 11:47 AM CDT Pulse 97 12/26/2024 11:47 AM CDT Temperature 36.6 C (97.9 F) 08/16/2024 11:31 AM LIQUOR COMMISSIONER Respiratory Rate 14 10/25/2024 11:27 AM [employer] COMMISSIONER Oxygen Saturation 94% 12/26/2024 11:47 AM CDT [...] this topic Medical Devices Implanted Type Area Program Control Analyst Device Identifier Shelf Expiration Date Model / Serial / Lot [employer] Allograft Bone Putty 2.5cc 700-025 - [id number] Implanted:Qty: 1 on 08/15/2024 by Debbie Restrepo MD at [facility] N/A: Spine Cervical [employer] [id number] 11/25/2026 700-025 / / [id number] [employer] Spinal Implants Cage Spinal Cervical 5 Degree Acdf Mini Construx [id number] Titanium 37-7005sp - [id number] Implanted:Qty: 1 on 08/15/2024 by Debbie Restrepo MD at [facility] N/A: Spine Cervical [employer] Spinal Implants 01/14/2026 [id number] / / 002 [employer] Spinal Implants Cage Spinal Cervical 5 Degree [employer]cd[employer] Mini Construx [id number] Titanium 37-7005sp - [id number] Implanted:Qty: 1 on 08/15/2024 by Debbie Restrepo MD at [facility] N/A: Spine Cervical [employer] Spinal Implants 07/10/2026 [id number] / / 003 [employer] Spinal Implants Cage Spinal Cervical 5 Degree [employer]cdf Mini Construx [id number] Titanium 37-7006sp - [id number] Implanted:Qty: 1 on 08/15/2024 by Debbie Restrepo MD at [facility] N/A: Spine Cervical [employer] Spinal Implants 08/27/2027 [id number] / / [id number] [employer] Plate Cervical Spine 3-Level 45mm 300-0345 - [id number] Implanted:Qty: 1 on 08/15/2024 by Debbie Restrepo MD at [facility] N/A: Spine Cervical [employer] 300-0345 / / [employer] Screw Self Drilling Variable 4.0x14mm [id number] - [id number] Implanted:Qty: 8 on 08/15/2024 by Debbie Restrepo MD at [facility] N/A: Spine Cervical [employer] [facility] [id number] / / Procedures Procedure Name Priority Date/Time [...] the NEUROLOGY-RESULTS link below. Dictation completed by [employer] software. Pharmacy Informatics Manager variances may occur. Narrative 12/15/2024 8:56 AM [...] Advance Directives For more information, please contact: [phone] * Full Code (Latest Code Status on File) Date Activated Date Inactivated Comments 08/15/2024 7:43 PM 08/16/2024 4:37 PM Care Teams Corporate Officer Relationship Specialty Start Date End Date Dayron Francis MD [address] [place] [address] PCP - General Internal Medicine 08/15/24
== END 2025-03-06 10:31 | disposition home or self-care (01) ==
LOC: CHSLAB 10:32
PROVIDERS: PCP Internal Medicine; Visit Provider Internal Medicine
DX: J18.9 Pneumonia, unspecified organism (principal)
CPT/HCPCS: 36415; 71046; 80053; 85027

== ENCOUNTER 2025-07-28 13:55 | Outpatient (CLI) | payer BC, SELFPAY ==
--- OUTSIDE RECORDS SUMMARY | 2025-07-26 07:47 | XMS_ITS | Encounter Summary ---
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 Name Role Phone Dayron Francis MD Primary Care Provider [phone] MD Unavailable [phone] Reason for Referral * Diagnostic Imaging (Routine) - Closed Specialty Diagnoses / Procedures Referred By Contac t Referred To Contact Diagnoses Lumbar radiculopathy Procedures Imaging Lumbar/Caudal Epidural Steroid INJ ([id number]) Russell Iglesias MD [address] [place] [address] Phone: tel: fax: [facility] [address] [place] [address] Referral ID Status Reason Start Date Expiration Date Visits Re quested Visits Authorized [id number] Closed 07/04/2025 08/03/2026 1 1 Reason for Visit * Reason Comments Procedure * Diagnostic Imaging (Routine) - Closed Specialty Diagnoses / Procedures Referred By Contac t Referred To Contact Diagnoses Lumbar radiculopathy Procedures Imaging Lumbar/Caudal Epidural Steroid INJ ([id number]) Russell Iglesias MD [address] [place] [address] Phone: tel: fax: [facility] [phone] [place] [address] Referral ID Status Reason Start Date Expiration Date Visits Re quested Visits Authorized [id number] Closed 07/04/2025 08/03/2026 1 1 Encounter Details Date Type Department Care Team (Latest Contact Info) Description 07/26/2025 7:47 AM CDT - 07/26/2025 11:59 PM CDT Hospital Encounter [facility] [address] [facility] 1st [place] [id number] Russell Iglesias MD [address] [place] [address] Lumbar radiculopathy Discharge Disposition: Discharge to home or self care Social History Tobacco Use Types Packs/Day Years [...] on file 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 Gender Identity Female 10/07/2024 5:41 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 Sexual Orientation Not on file documented as of this encounter Last Filed Vital Signs Vital Sign Reading Time Taken Comments Blood Pressure 132/79 07/26/2025 8:42 AM CDT Pulse 68 07/26/2025 8:42 AM CDT Temperature - - Respiratory Rate - - Oxygen Saturation 98% 07/26/2025 8:42 AM CDT Inhaled Oxygen Concentration - - Weight - - Height - - Body Mass Index - - documented in this encounter Discharge Instructions * Discharge Instructions* Keyanna Carranza, VALE - 07/26/2025 8:18 AM CDT [facility] POST-PROCEDURE PATIENT EDUCATION The following procedure was performed in clinic today: Lumbar Epidural Steroid Injection IMPORTANT: If your physician wants to repeat this procedure for you in the future, you will be required to schedule a follow up appointment AT LEAST 3 months after this procedure. The purpose of thisfollow up appointment is to document 3 months of relief, percentage of relief obtained, and examples of functional improvement. This is required by insurance companies to get the next procedure pre-approved. You have received two medications in your injection today. The first is a numbing medicine. This medicine may give you quick pain relief that may wear off before tomorrow. The second medicine is a steroid which may take 2-10 days to experience the benefits. For some cases, it may take longer. Although not everyone obtains pain relief from steroid injections, often the injections can provide you with improvement in pain and function that last several months or longer.If you get significant benefits, the injections can be safely repeated periodically to maintain theimprovements. Injections are also commonly coupled with other treatments such as, and not limited to, physical therapy in an attempt to either maximize the benefits or prolong the effects. Steroid injections are generally well tolerated; however, some patients may experience side effects. Most resolve within an hour of the procedure but may re-occur within 24-48 hours. These side effects include: Dizziness or light headedness upon standing. Change positions slowly. Steroid Flushing of the face and chest that can last several days and be accompanied by a feelingof warmth or low grade increase in temperature. Mild bruising, bleeding, or swelling at the injection site(s) Mild weakness or numbness in the extremities Anxiety, trouble sleeping Increased blood sugars. Patients with diabetes should monitor glucose levels regularly and notify the provider managing their diabetes of any sustained increases. Limit activity today. No driving today. You may resume your normal activity, including driving, in the morning. Increased pain, soreness, and/or aching may occur at the injection site. A cold pack may be used in20 minute intervals (20 minutes on / 20 minutes off) during the first 24 hours. After 24 hours, if discomfort continues, heat may be applied over the injection site(s) in the same 20 minute intervals. For your safety, DO NOT lie on top of the heating pad or allow yourself to fall asleep during use. To avoid the risk of infection, DO NOT submerge the injection site. Hot tubs, swimming pools, and bath tubs should be avoided for the next 24 hours. You may shower for bathing. Serious complications are rare, but are possible. If you experience ANY of the following, please call 911 or go to the nearest Emergency Department. Emergency staff should be made aware of your procedure. After receiving care for your complication, please notify the Pain Management Center. Allergic Reaction Extensive bleeding Infection (may be indicated by a fever of 101o or greater, heat, redness, or drainage at the injection site) Headache when sitting or standing that resolves when lying down New loss of balance/difficulty walking New loss of bowel or bladder control Increasing muscle weakness or prolonged numbness in the extremities At this time there is limited information regarding the impact to steroid injections on the efficacy of the Covid vaccine. Physician guidance recommends delaying steroid injections when possible. PAIN MANAGEMENT [facility] DISCHARGE INFORMATION PLAN / NEW ORDERS: Follow up in 3 months [phone] Calls are accepted Thursday-Thursday, 7:30am-4pm, excluding observed holidays. We highly encourage the use of [facility] for non-urgent matters as well as prescription refill requests. If you are scheduled for an injection and have an active infection and/or feeling ill in any way, please contact the office for further instructions. MEDICATION REFILL REQUESTS: To allow timely scheduling of evaluations, please contact the office to schedule your appointment 6-8 weeks in advance. For all opioid/narcotic prescription refills and non-opioid/non-narcotic refills with no refills remaining, please contact the Pain Management Center 5-7 business days prior to the date of need to avoid any delays. Refills may be requested thru MyChart which is the preferred method for refill requests. Call [phone] and leave a message on the RN Message Line with the following information: Name, date of , and phone number Name(s) of the medication(s) needing refill Name and number for the pharmacy where the refill(s) should be sent Please note, prescription refill dates are calculated based on the quantity of medication provided,not the date on which the pharmacy filled the prescription. Patients whom are prescribed opioid medications are required to be evaluated at least once every three months or more frequently, as deemed appropriate by the prescribing provider. Patients who are prescribed non-opioid medications are required to be evaluated at least every 6 months or more frequently, as deemed appropriate by the prescribing provider. [] Physical Therapy Scheduling - [phone] [] Surgical Evaluation Center - [phone] (Surgical Eval Center will call to schedule your pre-op evaluation appt) [] Dr. Andrews and Dr. Raza - Pain Psychologist - [phone] [] MRI Scheduling - [phone] We encourage you to schedule at [facility] as our physicians work closely withthe Radiology Imaging Department and the physicians that read the images. In addition the images are of higher quality, and we receive the results quicker. If you choose to use an imaging location outside of [facility] You will need to bring the CD to the film library at [facility] prior to any future appointments. You will need to bring a copy of the report to your next appointment. Please notify us immediately with a message on our nurse line or by sending a shipbeat message with the following: Location Location phone number Date your MRI is scheduled Please note that MRI authorizations may take up to 7-14 business days for determination. Pain Management will not fill out FMLA, workers compensation forms or disability forms. Please contact your primary care physician. Pain Management does not print or supply copies of medical records. Medical records may be requested thru [facility] medical records department [phone]. We strive to provide you with EXCELLENT service as our patient. You may receive a survey after your visit today. If you can not rate your experience as EXCELLENT, please let us know before you leave how we can improve and better meet your needs. Thank you for choosing [facility] / Pain Management! documented in this encounter Medications at Time of Discharge amLODIPine (NORVASC) 5 mg tablet Take 1 tablet (5 mg total) by mouth every morning calcium carb,cit-mag cit,ox-D3 300 mg-150 mg- 400 unit tablet 09/15/2024 calcium carb/vitamin D3/vit K1 (CALCIUM-VITAMIN D3-VITAMIN K ORAL) Take by mouth daily collagen-biotin- ascorbic acid (Collagen 1500 Plus C) 500 mg-800 mcg- 50 mg capsule 09/15/2024 cyanocobalamin (Vitamin B-12) 1,000 mcg tabletIndication s:Prevention of Vitamin B12 Deficiency Take 5 tablets (5,000 mcg total) by mouth daily ibuprofen (ADVIL,MOTRIN) 800 mg tablet 11/04/2022 losartan (COZAAR) 100 mg tablet Take 1 tablet (100 mg total) by mouth daily magnesium citrate 100 mg tablet Take 800 mg by mouth daily multivitamin tabletIndication s:Vitamin Deficiency Prevention Take 1 tablet by mouth marine steam 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 helper before breakfast phentermine 37.5 mg capsule Take 1 capsule (37.5 mg total) by mouth every morning pregabalin (LYRICA) 75 mg capsuleIndicatio ns:Neuropathic pain Take 1 capsule (75 mg total) by mouth nightly 30 capsule 3 07/04/2025 spironolactone (ALDACTONE) 50 mg tablet Take 1 tablet (50 mg total) by mouth daily topiramate (TOPAMAX) 50 mg tablet Take 1 tablet (50 mg total) by mouth every morning UNABLE TO FIND Med Name: Mirica (PEA) 2-4 per Day *For nerve pain documented as of this encounter Discharge Disposition Disposition Code Departure Means Destination Discharge to home or self care documented in this encounter H&P Notes * Russell Iglesisa MD - 07/26/2025 8:00 AM CDT I have reviewed the H&P, examined the patient, and endorse the findings as written. R/B/A discussed, including but not limited to bleeding, infection, increased pain, PDPH, and possible nerve injury/paralysis. Alternatives (risks) include: medication managment (dependency), no intervention (increased pain). Patient understand risks/benefits/alternatives and agrees to proceed with injection. Plan of Care : Based on the above findings, I consider Terri Alonso to be an acceptable risk for: lumbar epidural steroid injection Source Note - Russell Iglesias MD - 07/04/2025 9:00 AM CDT Patient Name: Terri Alonso : 1970 Today's Date: 07/04/2025 PCP: Dayron Francis MD Referring: Dayron Francis MD Chief Complaint Patient presents with Back Pain HPI HISTORICAL INFO: Ms. Terri Alonso is a 55 y.o. female was referred by Dayron Francis MD for consultation regarding treatment recommendations for management of low back pain radiating to both lower extremities. Location of pain: Low back Radiation of pain: Radiating to both lower extremities Associated signs/symptoms: Numbness. Ms. Terri Alonso is a 55 year-old female who presents with low back pain radiating to both lowerextremities for the last several years. She reports numbness in both feet, but no weakness or bowel/bladder incontinence. In addition she has upper and midback pain (shoulder blades to low back), butwas referred for her low back pain. She states the pain just started and denies any inciting event or trauma prior to the start of the pain. She attributes the pain to Tarlov cysts. She reports having back pain since teenage years, but progressively worsened in the last 4-5 years. She feels that the pain is continuously getting worse and has started having pain giving her difficulty walking. She reports seeing a pain management physician ([place], [place]) in the past and underwent injections, including lumbar radiofrequency ablation (Jul 2023-Sep 2023) and lumbar epidural steroid injection x2 and cervical BOGDAN (Spring-March 2024). She has tried physical therapy with limited relief (last sessionin March 2024). She reports seeing Dr. Restrepo (neurosurgery) and underwent a C4-C7 ACDF in July2024 with limited improvement. She has been evaluated via tele visit from Dr. Peter Sampson for her Tarlov cysts and has also seen neurosurgery at [facility]. Previous medications tried: gabapentin (didn't help and didn't like side effects), ibuprofen, cyclobenzaprine INTERVAL HISTORY (07/04/2025): Ms. Terri Alonso returns to care for persistent low back pain radiating down both lower extremities. She reports numbness in both LE and urinary urgency, but no weakness or bowel/bladder incontinence. Since the last visit, the pain is unchanged. She started pregabalin 50 mg qhs with some slight improvement in the pain. She is also taking ibuprofen PRN. She denies any side effects to current pain medications. The pain is constant and described as shooting, throbbing, stabbing, numbing. She rates her pain at 7/10 on average. The pain increases with activity and decreases with rest. Her ADLs are difficult, but manageable on her own. Pain Assessment Pain Score: 7 Patient's Stated Pain Goal: No pain Pain Location: Back (Lumbar) Pain Radiating Towards: down b/l legs (L>R), numbness in feet and legs Pain Descriptors: Shooting, Throbbing, Stabbing, Numbness Pain Frequency: Constant/continuous Pain Onset: Ongoing Current Pain meds: Pain Medications ibuprofen (ADVIL,MOTRIN) 800 mg tablet pregabalin (LYRICA) 25 mg capsule Take 2 capsules (50 mg total) by mouth nightly Start with 1 tab qhs x1wk, increase 2 tabs qhs. topiramate (TOPAMAX) 50 mg tablet Take 1 tablet (50 mg total) by mouth every morning Review of Systems Review of Systems Constitutional: Negative for chills and fever. HENT: Negative for hearing loss. Respiratory: Negative for shortness of breath. Cardiovascular: Negative for chest pain. Gastrointestinal: Positive for constipation. Negative for nausea and vomiting. Genitourinary: Negative for dysuria. Musculoskeletal: Positive for back pain, joint pain and myalgias. Neurological: Positive for tingling. Negative for focal weakness. Psychiatric/Behavioral: Positive for depression. Negative for suicidal ideas. The patient is not nervous/anxious. Patient's Medications New Prescriptions No medications on file Previous Medications AMLODIPINE (NORVASC) 5 MG TABLET Take 1 tablet (5 mg total) by mouth every morning Authorizing Provider: Vera Ricks MD Notes: -- CALCIUM CARB,CIT-MAG CIT,OX-D3 300 MG-150 MG- 400 UNIT TABLET Authorizing Provider: Vera Ricks MD Notes: -- CALCIUM CARB/VITAMIN D3/VIT K1 (CALCIUM-VITAMIN D3-VITAMIN K ORAL) Take by mouth daily Authorizing Provider: Vera Ricks MD Notes: -- [id number] ACID (COLLAGEN 1500 PLUS C) 500 MG-800 MCG- 50 MG CAPSULE Authorizing Provider: Vera Ricks MD Notes: -- CYANOCOBALAMIN (VITAMIN B-12) 1,000 MCG TABLET Take 5 tablets (5,000 mcg total) by mouth daily Authorizing Provider: Vera Ricks MD Notes: -- IBUPROFEN (ADVIL,MOTRIN) 800 MG TABLET Authorizing Provider: Vera Ricks MD Notes: -- LOSARTAN (COZAAR) 100 MG TABLET Take 1 tablet (100 mg total) by mouth daily Authorizing Provider: Vera Ricks MD Notes: -- MAGNESIUM CITRATE 100 MG TABLET Take 800 mg by mouth daily Authorizing Provider: Vera Ricks MD Notes: -- MULTIVITAMIN TABLET Take 1 tablet by mouth marine steam fitter helper before breakfast Authorizing Provider: Vera Ricks MD Notes: -- PHENTERMINE 37.5 MG CAPSULE Take 1 capsule (37.5 mg total) by mouth every morning Authorizing Provider: Vera Ricks MD Notes: -- PREGABALIN (LYRICA) 25 MG CAPSULE Take 2 capsules (50 mg total) by mouth nightly Start with 1 tab qhs x1wk, increase 2 tabs qhs. Authorizing Provider: Russell Iglesias MD Notes: -- SPIRONOLACTONE (ALDACTONE) 50 MG TABLET Take 1 tablet (50 mg total) by mouth daily Authorizing Provider: Vera Ricks MD Notes: -- TOPIRAMATE (TOPAMAX) 50 MG TABLET Take 1 tablet (50 mg total) by mouth every morning Authorizing Provider: Vera Ricks MD Notes: -- UNABLE TO FIND Med Name: Mirica (PEA) 2-4 per Day *For nerve pain Authorizing Provider: Vera Ricks MD Notes: -- Modified Medications No medications on file Discontinued Medications No medications on file No Known Allergies Physical Exam: Vitals: 07/04/25 0856 BP: 132/87 Pulse: 79 Resp: 16 Temp: 97.2 ??F (36.2 ??C) SpO2: 96% There is no height or weight on file to calculate BMI. Constitutional: Patient is well-groomed, in NAD ENT: hearing assessment grossly normal Lung: normal respiratory effort Musculoskeletal: Gait: Antalgic Full ROM in b/l UE and LE Sit slump test negative bilaterally Neurologic: Lower Ext Power: L2 hip flex 4/5 bilaterally L3 knee ext 5/5 bilaterally L4 foot dorsiflex 4/5 bilaterally L5 hallux dorsiflex 4/5 bilaterally S1 hallux plantar flex 5/5 bilaterally Sensation to light touch: normal bilaterally Skin: No rashes or lesions in the four extremities and back. Psychiatric: normal affect Results: EMG/NCV (12/15/24): IMPRESSION: No abnormalities noted on the above study. It should be noted that a normal EMG examination does not entirely rule out the possibility of a radiculopathy. MRI Brain and Total Spine (11/25/24): BRAIN: The scalp and calvarium are normal. The superior sagittal sinus demonstrates normal venous flow. The posterior fossa is unremarkable. The pituitary and sella are normal. The brainstem and craniocervical junction are unremarkable. Diffusion weighted images reveal no hyperintensities to suggest acute cerebral infarction. The susceptibility weighted sequences demonstrate no evidence of hemorrhage. Brain volume is normal for age. No abnormal FLAIR signal. The ventricles are normal in size and configuration without hydrocephalus. Normal orbits. Moderate bilateral maxillary sinus mucosal thickening with air-fluid levels. Complete opacification of the left sphenoid sinus. The visualized portions of the mastoids are clear. Normal flow voids are demonstrated in the carotid arteries and basilar artery. No abnormal contrast enhancement. CERVICAL SPINE: Changes of prior C4-C7 ACDF with interbody spacers suboptimally evaluated on recent cervical spine radiographs. Trace anterolisthesis of C2 on C3. Vertebral body heights are maintained without compression deformity. Normal T1 bone marrow signal. Intervertebral discs demonstrate normal height. No significant degenerative end plate changes. The visualized portions of the skull base and the posterior fossa are normal. The spinal cord is normal in signal and morphology. No soft tissue abnormality is identified. Normal flow voids are present in the vertebral arteries. 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 C2-C3: The disk is normal in configuration. There is severe left facet arthropathy. There is mild left uncovertebral joint disease. There is mild left neuroforaminal stenosis. There is no spinal canal stenosis. C3-C4: The disk is normal in configuration. There is mild bilateral facet arthropathy. There is mild right uncovertebral joint disease. There is mild right neuroforaminal stenosis. There is no spinal canal stenosis. C4-C5: Discectomy. There is mild bilateral facet arthropathy. There is moderate left uncovertebral joint disease. There is moderate left neuroforaminal stenosis. There is no spinal canal stenosis. C5-C6: Discectomy. There is mild bilateral facet arthropathy. There is mild bilateral uncovertebral joint disease. There is mild bilateral neuroforaminal stenosis. There is no spinal canal stenosis. C6-C7: Discectomy. There is no facet arthropathy. There is moderate bilateral uncovertebral joint disease. There is mild bilateral neuroforaminal stenosis. There is no spinal canal stenosis. C7-T1: The disk is normal in configuration. There is mild bilateral facet arthropathy. There is no uncovertebral joint disease. There is no neuroforaminal stenosis. There is no spinal canal stenosis. THORACIC SPINE: Midthoracic mild dextroscoliosis, apex at T6. Extending from the T9-T11 levels is an approximate 0.2 x 0.4 x 3.6 cm syrinx. The alignment of the thoracic spine is normal. Vertebral body heights are maintained without compression deformity. Normal T1 bone marrow signal. Mild multilevel degenerative disc dessication and height loss. No significant degenerative end plate changes. Limited views of the chest and abdomen show no abnormality. The aorta is normal caliber. No abnormal contrast enhancement. At T3-T4 small right paracentral disc protrusion abuts and indents the ventral margin of the spinal cord without compression or cord signal abnormality. Mild spinal canal stenosis. At T4-T5, small left paracentral disc protrusion. Multiple bilateral perineural cysts, most prominent at T8-T9, T9-T10, T10-T11, and T11-T12 on the right and T7-T8 and T10-T11 on the left. LUMBAR SPINE: Mildly prominent epidural fat. Multilevel Tarlov cysts within the sacral canal, similar to recent prior exam. Additional multilevel perineural throughout the lumbar spine, most prominent at L5-S1 bilaterally and L4-L5 on the left. Multiple sacral leptomeningeal cyst with scalloping of the adjacent cortex, most prominent at S2. Grade 1 retrolisthesis of L2 on L3 and L3 on L4. Grade 1 anterolisthesis of L4 on L5. Vertebral body heights are maintained without compression deformity. Heterogeneous T1 bone marrow signal, findings which can be seen with smoking, anemia, or obesity among other etiologies. Mild multilevel degenerative disc dessication and height loss. Modic type 1 endplate changes at L1-L2 and L4-L5. The conus terminates at an appropriate level. The distal spinal cord signal intensity is normal. Conus medullaris terminates at L2-3. Small filum lipoma seen on series 39 image 28 Bilateral renal cysts. The aorta is normal caliber. No abnormal contrast enhancement. L1-L2: Disc bulge. There is no facet arthropathy. There is no neuroforaminal stenosis. There is no spinal canal stenosis. L2-L3: Disc bulge. There is moderate facet arthropathy. There is no neuroforaminal stenosis. There is no spinal canal stenosis. L3-L4: Disc bulge. There is severe facet arthropathy. There is mild right neuroforaminal stenosis. There is mild spinal canal stenosis. L4-L5: Diffuse disc bulge and facet arthropathy causing moderate right neural foraminal stenosis. T2 hyperintense annular fissure along the inferior disc within the foramen on series 36 image 4.. There is severe facet arthropathy associated with mild right perifacetal marrow edema indicating acute inflammation. No joint effusion. There is mild right neuroforaminal stenosis. There is mild spinal canal stenosis. L5-S1: The disc is normal in configuration. There is severe facet arthropathy. There is no neuroforaminal stenosis. There is no spinal canal stenosis. IMPRESSION: 1. Unremarkable MRI of the brain. 2. Changes of prior C4-C7 ACDF. No high-grade spinal canal stenosis in the cervical spine. Mild/moderate multilevel neural foraminal stenosis. 3. A small (3 mm transverse) syrinx extending from T9 through T11 as detailed above. Mild degenerative changes of the thoracic spine associated with dextrocurvature. Multiple bilateral perineural cysts as above. 4. Mild to moderate degenerative changes in the lumbar spine with diffuse epidural lipomatosis and multilevel perineural cyst/Tarlov cysts as above. 5. Severe L4-5 facet arthropathy is associated with mild enhancing perifacetal marrow edema and soft tissue edema indicating active inflammation on the right side. No joint effusion. 6. Acute paranasal sinusitis. Assessment: The above note documents my personal evaluation of this patient. In addition, I have reviewed and confirmed with the patient and nurse the supportive information documented in today's scanned PatientHealth Questionnaire and Office Note. Encounter Diagnoses Name Primary? Lumbar radiculopathy Yes Neuropathic pain Tarlov cysts Plan: 1. Interventions: Will avoid caudal BOGDAN due to sacral Tarlov cysts. Discussed steroid injections and epidural lipomatosis. Discussed TESI (T2-T3) or LESI (L5- S1). Will proceed with LESI at future visit. 2. Medications: Opioids: I have not recommended opioid analgesics Adjuvants: Patient would like to avoid pregabalin during the day. We can increase pregabalin 75 mg qhs. 3. Imaging/Diagnostic/Labs: No further imaging needed at this current time. 4. Referral/Referral notes: No referrals needed at this current time. 5. Follow-up: In 2-3 months or PRN for re-evaluation of the above regimen. Russell Iglesias MD Drive Man of Anesthesiology [facility], [facility] 07/04/2025 9:13 AM documented in this encounter Miscellaneous Notes * Op Note - Russell Iglesias MD - 07/26/2025 8:00 AM CDT OPERATIVE NOTE: Name: Terri Alonso : 1970 Date of Surgery: 07/26/2025 PCP: Dayron Francis MD Attending Surgeon: Russell Iglesias M.D. Surgical Assistants: None Procedure: Lumbar Epidural Steroid Injection at L5-S1, under fluoroscopy. Pre-procedural Diagnosis: Chronic pain and Lumbar radiculopathy Post-procedural Diagnosis: Same Indication for Procedure: Low back pain radiating to the leg Operative Findings: The procedure was performed as planned Estimated Blood Loss: None Intraoperative Fluids: None Specimens: None Complications: None Informed Consent: After reviewing the procedure with the patient, informed consent to proceed with the injection was obtained. A procedural permit was also signed. Description of Procedure: The patient was placed in the prone position, and fluoroscopy was used toidentify the L5-S1. The lumbar area was prepped with Duraprep solution and draped with sterile drape (prep and drape materials from the epidural kit). Sterile technique was used throughout. At the needle entry point, the skin and subcutaneous tissues were infiltrated with 1% lidocaine. An 18-gauge Carmen needle was advanced to the epidural space, using the loss of resistance technique. Omnipaque 300 X 0.5 ml. was injected, resulting in distribution of contrast in the epidural space from L5 to S1. No paresthesias were encountered during needle placement. With the needle in the epidural space, aspiration was negative for blood or other fluid. Methylprednisolone, 80 mg., lidocaine, 15 mg., and epinephrine, 5 mcg., (total volume 3 ml.) were injected through the Carmen needle. The injected localanesthetic and steroid resulted in dispersion of the previously injected contrast. The procedure was well tolerated, and there were no apparent complications. The patient had slight relief of pain from the injected local anesthetic. Disposition: The patient was neurologically intact in the recovery room and was discharged home in stable condition. No Resident involved on case. Russell Iglesias MD 07/26/2025 8:44 AM documented in this encounter Plan of Treatment Not on file documented as of this encounter Goals Goal Patient Goal Type Associated Problems Recent Progress Patient-Stated? Author CCM Chronic Pain Care Plan Chronic Care Management On track(2024 7:54 AM CDT) No Neelam Pierce, RN Note: Problem: Chronic Pain Goals: 1. Minimize further functional decline 2. Maximize quality of life 3. Control pain Strategies: - Activity/exercise program recommendation - Conservative stepwise pain medicine strategy with multi-disciplinary approach - Recommend healthy lifestyle strategies and compensatory methods as needed documented as of this encounter Procedures Procedure Name Priority Date/Time Associated Diagnosis Comments PAIN MGMT IMAGING LUMBAR/CAUDAL EPIDURAL STEROID INJ Schedule Routine, Read Routine (OP Routine) 07/26/2025 8:36 AM CDT Lumbar radiculopathy documented in this encounter Results * Imaging Lumbar/Caudal Epidural Steroid INJ (45905) (07/26/2025 8:36 AM CDT) Narrative [facility] - 07/26/2025 8:42 AM CDT The images from this study are not interpreted by Radiology. Please refer to the physician's procedure / OR operative note. us Russell Iglesias MD IMG PAIN MGMT PROCEDURES Final Result RAD_PACS_[facility] documented in this encounter Visit Diagnoses Diagnosis Lumbar radiculopathy Thoracic or lumbosacral neuritis or radiculitis, unspecified documented in this encounter Administered Medications Inactive Administered Medications - up to 3 most recent administrations Medication Order MAR Action Action Date Dose Rate Site iohexoL (OMNIPAQUE) 300 mg iodine/mL injection solution As needed, Starting on Thu07/26/25 at 0834, Intra-Op Given 07/26/2025 8:34 AM CDT 0.5 mL lidocaine (PF) (XYLOCAINE) 10 mg/mL (1 %) preservative free injection As needed, Starting on Thu07/26/25 at 0832, Intra-Op Given 07/26/2025 8:36 AM CDT 1 mL Given 07/26/2025 8:33 AM CDT 1 mL Given 07/26/2025 8:32 AM CDT 3 mL lidocaine-EPINEPHrine (XYLOCAINE with EPI) 1.5 %-1:200,000 preservative free injection As needed, Starting on Thu07/26/25 at 0835, Intra-Op, Indications: Administration of Local AnesthesiaIndications:Administration of Local Anesthesia Given 07/26/2025 8:35 AM CDT 1 mL methylPREDNISolone acetate (DEPO-medrol) injection As needed, Starting on Thu07/26/25 at 0835, Intra-Op Given 07/26/2025 8:35 AM CDT 80 mg sodium chloride 0.9% flush As needed, Starting on Thu07/26/25 at 0834, Intra-Op Given 07/26/2025 8:35 AM CDT 2 mL Given 07/26/2025 8:34 AM CDT 1 mL documented in this encounter Care Teams Well Servicing Rig Operator Relationship Specialty Start Date End Date Dayron Francis MD [address] [place] [address] PCP - General Internal Medicine 08/15/[address] MD [address] [place] [address] Consulting Physician Pain Management 05/19/25 documented as of this encounter
--- NOTE | ~2025-07-28 | CT_ITS ---
EXAMINATION: CTA brain DATE: 07/28/2025 14:34 INDICATION: Pulsatile tinnitus, left ear. TECHNIQUE: Computed tomographic angiography (CTA) of the head was performed without and with 100 mL Omnipaque-350 intravenous contrast. Automated exposure control and iterative reconstruction technique were employed. The dose-length product was 1165.66 mGy-cm. Maximum intensity projection 3D reconstructions were created. Volume-rendered 3D reconstructions of the intracranial arteries were created by the technologist on a separate workstation. COMPARISON: None. FINDINGS: There is no intracranial hemorrhage, acute infarction, or abnormal intracranial mass lesion. The ventricles are normal in size. The paranasal sinuses are clear. The orbits are normal. The mastoid air cells are normal. Left vertebral artery is dominant. There is no significant stenosis of basilar artery or the posterior cerebral arteries. There is no significant stenosis of the intracranial internal carotid arteries or anterior or middle cerebral arteries. Anterior communicator artery is normal. The posterior communicating arteries are normal. There is no aneurysm. IMPRESSION: 1. Normal brain. 2. No aneurysm or significant intracranial arterial stenosis. Reviewed, dictated and finalized at location E.
--- OUTSIDE RECORDS SUMMARY | 2025-07-28 13:58 | XMS_ITS | Clinical Summary ---
Author Organization [facility] Address Formerly [facility], later [facility] [place] [address] Care Team Providers Care Urologist Md Name Role Phone Lorie Greene MD Primary Care Provider [phone] Allergies No known active allergies Medications multivitamin tablet Take 1 tablet by mouth daily. Active terbinafine (LAMISIL) 250 MG tablet Take 1 tablet by mouth daily. 10/13/2022 Active traMADol (ULTRAM) 50 MG tablet 08/13/2022 Active gabapentin (NEURONTIN) 100 MG capsule 08/13/2022 Active cyclobenzaprine (FLEXERIL) 10 MG tablet Take 10 mg by mouth 3 (three) times daily as needed for Muscle Spasms. Active clindamycin (CLEOCIN) 300 MG capsule 11/04/2022 Active ibuprofen (MOTRIN) 800 MG tablet 11/04/2022 Active Encounters Date Type Department Care Team Description 05/10/2025 7:30 AM CDT - 05/10/2025 11:59 PM T Hospital Encounter [facility] [place] [address] Lorie Greene MD Discharge Disposition: Home or Self Care (Routine Discharge) 05/10/[address] [facility] [place] [address] Lorie Greene MD 05/10/2025 Travel from Last 3 Months Family History Medical History Relation Comments Breast Cancer Sister Relation Status Comments Sister Social History Tobacco Use Types Packs/Day Years Used Date Smoking Tobacco: Never Smokeless Tobacco: Never Tobacco Cessation:Counseling Given: Not Answered Alcohol Use Standard Drinks/Week Comments Never 0 (1 standard drink = 0.6 oz pur e alcohol) Comments No Sex and Gender Information Value Date Recorded Sex Assigned at Female 11/18/2024 4:50 PM [employer] Legal Sex Female 6:05 PM CDT Gender Identity Not on file Sexual Orientation Not on file Last Filed Vital Signs Vital Sign Reading Time Taken Comments Blood Pressure 153/84 11/11/2022 7:53 AM [employer] Pulse 70 11/11/2022 7:53 AM [employer] Temperature 36.4 C (97.6 F) 11/11/2022 7:53 AM [employer] Respiratory Rate 18 11/11/2022 7:53 AM [employer] Oxygen Saturation 95% 11/11/2022 7:53 AM [employer] Inhaled Oxygen Concentration - - Weight 120.2 kg (265 lb) 11/04/2022 2:26 PM [employer] Height 175.3 cm (5' 9) 11/04/2022 2:26 PM [employer] Body Mass Index 39.13 11/04/2022 2:26 PM [employer] Plan of Treatment Health Maintenance Due Date Last Done Comments Cervical Cancer Screening Pa p Smear (Age 30 to 64) Every 3 Years 1970 Annual Physical 1973 Hepatitis C 01/06/1988 DTaP, Tdap and Td Vaccines ( 1 - Tdap) 1989 Hepatitis B Vaccines (1 of 3 - 19+ 3-dose series) 1989 Cervical Cancer Screening Pa p with HPV Testing (Age 30 to 64) Every 5 Years 01/06/2000 Cervical Cancer Screening wi th HPV 01/06/2000 Pneumococcal Vaccine: 50+ Years (1 of 1 - PCV) 01/06/2020 Zoster Vaccines (1 of 2) 01/06/2020 COVID-19 Vaccine ( - 2024-2 6 season) 2025 Influenza Adult (#1) 2025 Mammogram Screening 11/29/2026 11/29/2024 Colorectal Cancer Screening Colonoscopy (10 Years) 03/26/2031 03/26/2021, 03/26/2021 Hepatitis A Vaccines Aged Out No long er eligible based on patient's age to complete this topic Meningococcal B Vaccine Aged Out No l onger eligible based on patient's age to complete this topic Meningococcal Vaccine Aged Out No francisca sonu eligible based on patient's age to complete this topic RSV Immunizations Under 20 Months Aged Out No longer eligible b ased on patient's age to complete this topic Procedures Procedure Name Priority Date/Time Associated Diagnosis Comments BASIC METABOLIC PANEL Routine 05/10/2025 7:42 AM CDT HTN (hypertension) MG SCREENING W KASI JEISON DIGI Routine 11/29/2024 3:07 PM [employer] Encounter for screening mammogram for malignant neoplasm of breast COLONOSCOPY 03/26/2021 11:09 AM CDT from Last 3 Months or Most Recently Relevant to Health Maintenance Results * (ABNORMAL) BASIC METABOLIC PANEL (05/10/2025 7:42 AM CDT) SODIUM S/P/B 140 136 - 145 MMOL/L 05/10/2025 8:02 AM CDT [facility] POTASSIUM S/P/B 4.0 3.5 - 5.1 MMOL/L 05/10/2025 8:02 AM CDT [facility] CHLORIDE S/P/B 105 98 - 107 MMOL/L 05/10/2025 8:02 AM CDT [facility] CO2 24.5 21.0 - 32.0 MMOL/L 05/10/2025 8:02 AM CDT [facility] GLUCOSE 106(H) 70 - 99 MG/DL 05/10/2025 8:02 AM CDT [facility] Comment: FASTING GLUCOSE 100 TO 125 MG/DL IS CONSISTENT WITH IMPAIRED FASTING GLUCOSE. FASTING GLUCOSE >125 MG/DL IS CONSISTENT WITH DIABETES. RANDOM GLUCOSE >200 MG/DL WITH HYPERGLYCEMIC SYMPTOMS IS CONSISTENT WITH DIABETES. PER ADA GUIDELINES BUN 23 6 - 24 MG/DL 05/10/2025 8:02 AM CDT [facility] CREATININE S/P/B 1.13(H) 0.55 - 1.02 MG/DL 05/10/2025 8:02 AM CDT [facility] CALCIUM S/P/B 9.7 8.4 - 10.5 MG/DL 05/10/2025 8:02 AM CDT [facility] ANION GAP 10.5 5.0 - 15.0 MMOL/L 05/10/2025 8:02 AM CDT [facility] OSMOLALITY (CALC) 294 MOSM/KG 025 8:02 AM CDT [facility] Comment:REFERENCE RANGE NOT ESTABLISHED GFR ESTIMATE 57(L) >89 ML/MIN/1. 73 M2 05/10/2025 8:02 AM CDT [facility] GFR NOTES GFR REFERENCE S: 05/10/2025 8:02 AM CDT [facility] Comment: THE ESTIMATED GFR IS CALCULATED USING THE 2020 CKD-EPI EQUATION. THE FOLLOWING CATEGORIES FOR GRADING RENAL FUNCTION ARE RECOMMENDED BY THE INTERNATIONAL SOCIETY OF NEPHROLOGY (KDIGO 2012 CLINICAL PRACTICE GUIDELINE). G1,NORMAL OR HIGH: >89 ml/min/1.73 m2 G2,MILDLY DECREASED: 60-89 ml/min/1.73 m2 G3A,MILDLY TO MODERATELY DECREASED: 45-59 ml/min/1.73 m2 G3B,MODERATELY TO SEVERELY DECREASED: 30-44 ml/min/1.73 m2 G4,SEVERELY DECREASED: 15-29 ml/min/1.73 m2 G5,KIDNEY FAILURE: <15 ml/min/1.73 m2 05/10/2025 7:42 AM CDT us Lorie Greene MD LABORATORY Final Result [facility] [address] [place] [address], * MG SCREENING W KASI JEISON DIGI (11/29/2024 3:07 PM [employer]) Anatomical Region Laterality Modality Breast Bilateral Mammography 11/29/2024 4:23 PM [employer] Impressions 11/29/2024 4:24 PM [employer] IMPRESSION: No suspicious change since the previous exams. Recommendation: 1: Routine Screening Bilateral in 1 Year Assessment: ACR BI-RADS 2 - BENIGN FINDING(S) Ordered By: LORIE GREENE Interpreted By: Carlos Manuel Hay MD, 11/29/2024 4:23 PM Narrative 11/29/2024 4:24 PM [employer] [address] [place] [address] Examination: Digital screening mammogram with CAD. Clinical history: Asymptomatic patient presents for routine screening. History of right breast cysts. Comparison: 09/18/2023, 08/04/2022, 07/09/2021. Technique: Bilateral digital mammograms. The exam was interpreted with the use of a computer-aided detection (CAD) system. Additional 3-D tomosynthesis images were acquired. Tissue density: There are scattered areas of fibroglandular density. Findings: The breast tissue contains scattered fibroglandular densities. Benign-appearing calcification noted. Nodular opacity near the 9:00 position on the right has substantially decreased in size and conspicuity compatible with involuting cyst. No suspicious mass, microcalcification or area of architectural distortion can be identified. From a mammographic standpoint, routine followup in one year would seem adequate. us Lorie Greene MD MAMMO Final Result * COLONOSCOPY (03/26/2021 11:09 AM CDT) us Palomo Eng MD GI PROCEDURE ORDERABLES Final Result from Last 3 Months or Most Recently Relevant to Health Maintenance Insurance [facility] Care Teams Urologist Md Relationship Specialty Start Date End Date Lorie Greene MD [address] [place] [address] PCP - General INTERNAL MEDICINE 10/28/23
--- OUTSIDE RECORDS SUMMARY | 2025-07-28 13:58 | XMS_ITS | Clinical Summary ---
Author Organization [facility] Address [address] [place] [address] Care Team Providers Care Commercial Property Administrator Name Role Phone Dayron Francis MD Primary Care Provider [phone] MD Unavailable [phone] Allergies No known active allergies Medications amLODIPine (NORVASC) 5 mg tablet Take 1 tablet (5 mg total) by mouth every morning Active topiramate (TOPAMAX) 50 mg tablet Take 1 tablet (50 mg total) by mouth every morning Active phentermine 37.5 mg capsule Take 1 capsule (37.5 mg total) by mouth every morning Active calcium carb/vitamin D3/vit K1 (CALCIUM-VITAMI N D3-VITAMIN K ORAL) Take by mouth daily Active calcium carb,cit-mag cit,ox-D3 300 mg-150 mg- 400 unit tablet 4 Active collagen-biotin -ascorbic acid (Collagen 1500 Plus C) 500 mg-800 mcg- 50 mg capsule 4 Active ibuprofen (ADVIL,MOTRIN) 800 mg tablet 3 Active multivitamin tabletIndicatio ns:Vitamin Deficiency Prevention Take 1 tablet by mouth patent legal assistant before breakfast Active UNABLE TO FIND Med Name: Mirica (PEA) 2-4 per Day *For nerve pain Active spironolactone (ALDACTONE) 50 mg tablet Take 1 tablet (50 mg total) by mouth daily Active losartan (COZAAR) 100 mg tablet Take 1 tablet (100 mg total) by mouth daily Active magnesium citrate 100 mg tablet Take 800 mg by mouth daily Active cyanocobalamin (Vitamin B-12) 1,000 mcg tabletIndicatio ns:Prevention of Vitamin B12 Deficiency Take 5 tablets (5,000 mcg total) by mouth daily Active pregabalin (LYRICA) 75 mg capsuleIndicati ons:Neuropathic pain Take 1 capsule (75 mg total) by mouth nightly 30 capsule 3 5 Active pregabalin (LYRICA) 25 mg capsuleIndicati ons:Neuropathic pain Take 2 capsules (50 mg total) by mouth nightly Start with 1 tab qhs x1wk, increase 2 tabs qhs. 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 Cervical spondylosis without myelopathy 07/20/20 24 Encounters Date Type Department Care Team Description 07/26/2025 7:47 AM CDT - 07/26/2025 11:59 PM CDT Hospital Encounter [address] [phone] Russell Iglesias MD Lumbar radiculopathy Discharge Disposition: Discharge to home or self care 07/24/[address] [phone] Karla Palomares RN Pre Arrival 07/04/2025 8:47 AM CDT - 07/04/2025 11:59 PM CDT Hospital Encounter [address] [phone] Russell Iglesias MD Lumbar radiculopathy (Primary Dx); Neuropathic pain; Tarlov cysts; Spinal stenosis of lumbar region with neurogenic claudication Discharge Disposition: Discharge to home or self care 05/19/2025 8:58 AM CDT - 05/19/2025 11:59 PM CDT Hospital Encounter [address] [phone] Russell Iglesias MD Lumbar radiculopathy (Primary Dx); Tarlov cysts; Neuropathic pain Discharge Disposition: Discharge to home or self care 05/17/2025 Telephone [facility] [address] [facility] [address] [place] [address] Glory Gates RN initial from Last 3 Months Surgical History Surgery Date Site/Laterality Comments CHOLECYSTECTOMY 09/28/2013 - 09/27/2014 HERNIA REPAIR 09/28/2012 - 09/27/2013 umblicial SECTION x3 (1986, 1992, 2002) ANTERIOR FUSION CERVICAL SPINE 09/28/2023 - 09/27/2024 C4-7 - Dr. Restrepo Medical History Medical History Date Comments Hypertension Anxiety Depression Family History Medical History Relation Name Comments Diabetes Maternal Grandmother Chronic Pain Mother Hypertension Mother Stroke Paternal Grandmother Breast cancer [...] on file Legal Sex Female 1:52 AM JIRA DEVELOPER Gender Identity Female 10/07/2024 5:41 PM JIRA DEVELOPER Sexual Orientation Not on file Obstetrics History Last Filed Vital Signs Vital Sign Reading Time Taken Comments Blood Pressure 132/79 07/26/2025 8:42 AM CDT Pulse 68 07/26/2025 8:42 AM CDT Temperature 36.2 C (97.2 F) 07/04/2025 8:56 AM CDT Respiratory Rate 16 07/04/2025 8:56 AM CDT Oxygen Saturation 98% 07/26/2025 8:42 AM CDT Inhaled Oxygen Concentration - - Weight 114.5 kg (252 lb 6.4 oz) 05/19/2025 9:17 AM CDT Height 175.3 cm (5' 9) 05/19/2025 9:17 AM CDT Body Mass Index 37.27 05/19/2025 9:17 AM CDT Plan of Treatment Health Maintenance Due Date Last Done Comments Cervical Cancer Screening 1970 Colon Cancer Screening-Colonoscopy 1970 Depression Screening 1970 Hepatitis C Screening 1970 Hepatitis B Screening 01/06/1988 Regular Well Visit/Exam 18-64 01/06/1988 Influenza Vaccine (#1) 2025 Breast Cancer Screening-Mammogram 11/29/2025 11/29/2024, 11/29/2024 DTaP/Tdap/Td Vaccine (2 - Td or Tdap) 10/15/2033 10/15/2023 Zoster Vaccine Completed 01/18/2024, 10/15/2023 Pneumococcal vaccine <65 Aged Out No longer eligible based on patient's age to complete this topic Goals Goal Patient Goal Type Associated Problems [...] lifestyle strategies and compensatory methods as needed Medical Devices Implanted Type Area Plasma Processing Centrifuge Operator Device Identifier Shelf Expiration Date Model / Serial / Lot [employer] Allograft Bone Putty 2.5cc [id number] - [id number] Implanted:Qty: 1 on 08/15/2024 by Debbie Restrepo MD at [facility] N/A: Spine Cervical [employer] [id number] 11/25/2026 700-025 / / [id number] Orth[employer]ix Spinal Implants Cage Spinal Cervical 5 Degree Acdf Mini Construx [id number] Titanium 37-7005sp - [id number] Implanted:Qty: 1 on 08/15/2024 by Debbie Restrepo MD at [facility] N/A: Spine Cervical [employer] Spinal Implants 01/14/2026 [id number] / / [id number] [employer]ix Spinal Implants Cage Spinal Cervical 5 Degree Acdf Mini Construx [id number] Titanium 37-7005sp - [id number] Implanted:Qty: 1 on 08/15/2024 by Debbie Restrepo MD at [facility] N/A: Spine Cervical [employer] Spinal Implants 07/10/2026 [id number] / / 003 [employer]ix Spinal Implants Cage Spinal Cervical 5 Degree Acdf Mini Construx [id number] Titanium 37-7006sp - [id number] Implanted:Qty: 1 on 08/15/2024 by Debbie Restrepo MD at [facility] N/A: Spine Cervical [employer] Spinal Implants 08/27/2027 [id number] / / [id number] [employer] Plate Cervical Spine 3-Level 45mm [id number] - [id number] Implanted:Qty: 1 on 08/15/2024 by Debbie Restrepo MD at [facility] N/A: Spine Cervical [employer] [id number] / / [employer] Screw Self Drilling Variable 4.0x14mm [id number] - [id number] Implanted:Qty: 8 on 08/15/2024 by Debbie Restrepo MD at [facility] N/A: Spine Cervical [employer] [id number] / / Procedures Procedure Name Priority Date/Time Associated Diagnosis Comments PAIN MGMT IMAGING LUMBAR/CAUDAL EPIDURAL STEROID INJ Schedule Routine, Read Routine (OP Routine) 07/26/2025 8:36 AM CDT Lumbar radiculopathy from Last 3 Months Results * Imaging Lumbar/Caudal Epidural Steroid INJ ([id number]) (07/26/2025 8:36 AM CDT) Narrative [facility] - 07/26/2025 8:42 AM CDT The images from this study are not interpreted by Radiology. Please refer to the physician's procedure / OR operative note. Russell Iglesias MD IMG PAIN MGMT PROCEDURES Final Result RAD_PACS[facility] from Last 3 Months Insurance [place] [employer] Advance Directives For more information, please contact: [phone] * Full Code (Latest Code Status on File) Date Activated Date Inactivated Comments 08/15/2024 7:43 PM 08/16/2024 4:37 PM Care Teams Commercial Property Administrator Relationship Specialty Start Date End Date Dayron Francis MD [address] [place] [address] PCP - General Internal Medicine 08/15/[address] MD [address] [place] [address] Consulting Physician Pain Management 05/19/25
[2025-07-29 06:31] LABS: Estimated Glomerular Filt Rate 52
== END 2025-07-28 13:56 | disposition home or self-care (01) ==
PROVIDERS: PCP Internal Medicine; Visit Provider Otolaryngology
DX: H93.A2 Pulsatile tinnitus, left ear (principal); H90.3 Sensorineural hearing loss, bilateral; R42 Dizziness and giddiness
CPT/HCPCS: 70496; Q9967

== ENCOUNTER 2025-08-02 07:49 | Outpatient (CLI) | payer BC, SELFPAY ==
--- OUTSIDE RECORDS SUMMARY | 2025-08-02 07:54 | XMS_ITS | Clinical Summary ---
Author Organization 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 Active UNABLE TO FIND Med [...] - 07/26/2025 11:59 PM CDT Hospital Encounter [address] [phone] Russell Iglesias MD Lumbar radiculopathy Discharge Disposition: Discharge to home or self care 07/24/[address] [phone] Karla Palomares RN Pre Arrival 07/04/2025 8:47 AM CDT - 07/04/2025 11:59 PM CDT Hospital Encounter [address] [phone] Russell Iglesias MD Lumbar radiculopathy (Primary Dx); Neuropathic pain; Tarlov cysts; Spinal stenosis of lumbar region with neurogenic claudication Discharge Disposition: Discharge to home or self care 05/19/2025 8:58 AM CDT - 05/19/2025 11:59 PM CDT Hospital Encounter [address] [phone] Russell Iglesias MD Lumbar radiculopathy (Primary Dx); Tarlov cysts; Neuropathic pain Discharge Disposition: Discharge to home or self care 05/17/2025 Telephone [facility] [address] [address] [place] [address] Glory Gates RN initial from [...] on file Legal Sex Female 1:52 AM COMMUNITY COORDINATOR Gender Identity Female 10/07/2024 5:41 PM COMMUNITY COORDINATOR Sexual Orientation Not on file Last [...] as needed Medical Devices Implanted Type Area Swabber Device Identifier Shelf Expiration Date Model / Serial / Lot [employer] Allograft Bone Putty 2.5cc -025 - [id number] Implanted:Qty: 1 on 08/15/2024 by Debbie Restrepo MD at [facility] N/A: Spine Cervical [employer] [id number] 11/25/2026 700-025 / / [id number] Orth[employer]ix Spinal Implants Cage Spinal Cervical 5 Degree Acdf Mini Construx [id number] Titanium 37-7005sp - [id number] Implanted:Qty: 1 on 08/15/2024 by Debbie Restrepo MD at [facility] N/A: Spine Cervical [employer] Spinal Implants 01/14/2026 [id number] / / 002 [employer] Spinal Implants Cage Spinal Cervical 5 Degree Acdf Mini Construx [id number] Titanium 37-7005sp - [id number] Implanted:Qty: 1 on 08/15/2024 by Debbie Restrepo MD at [facility] N/A: Spine Cervical [employer] Spinal Implants 07/10/2026 [id number] / / 003 [employer] Spinal Implants Cage Spinal Cervical 5 Degree Acdf Mini Construx [id number] Titanium 37-7006sp - [id number] Implanted:Qty: 1 on 08/15/2024 by Debbie Restrepo MD at [facility] N/A: Spine Cervical [employer] Spinal Implants 08/27/2027 [id number] / / [id number] [employer] Plate Cervical Spine 3-Level 45mm 300-0345 - [id number] Implanted:Qty: 1 on 08/15/2024 by Debbie Restrepo MD at [facility] N/A: Spine Cervical [employer] 300-0345 / / [employer] Screw Self Drilling Variable 4.0x14mm [id number] - [id number] Implanted:Qty: 8 on 08/15/2024 by Debbie Restrepo MD at [facility] N/A: Spine Cervical [employer] [id number] / / Procedures Procedure Name Priority Date/Time Associated Diagnosis Comments PAIN MGMT IMAGING LUMBAR/CAUDAL EPIDURAL STEROID INJ Schedule Routine, Read Routine (OP Routine) 07/26/2025 8:36 AM CDT Lumbar radiculopathy from Last 3 Months Results * Imaging Lumbar/Caudal Epidural Steroid INJ (57329) (07/26/2025 8:36 AM CDT) Narrative [facility] - 07/26/2025 8:42 AM CDT The images from this study are not interpreted by Radiology. Please refer to the physician's procedure / OR operative note. Russell Iglesias MD IMG PAIN MGMT PROCEDURES Final Result RAD_PACS_[facility] from Last 3 Months Insurance [place] [employer] [place] Advance Directives For more information, please contact: [phone] * Full Code (Latest Code Status on File) Date Activated Date Inactivated Comments 08/15/2024 7:43 PM 08/16/2024 4:37 PM Care Teams Grassland Conservationist Relationship Specialty Start Date End Date Dayron Francis MD [address] [place] [address] PCP - General Internal Medicine 08/15/[address] MD [address] [place] [address] Consulting Physician Pain Management 05/19/25
--- OUTSIDE RECORDS SUMMARY | 2025-08-02 07:54 | XMS_ITS | Clinical Summary ---
Author Organization [facility] Address [facility] [place] [address] Care Team Providers Care Oleomargarine Maker Name Role Phone Lorie Greene MD Primary Care Provider [phone] Allergies No known active allergies Medications multivitamin [...] Hospital Encounter [facility] [place] [address] Lorie Greene MD Discharge Disposition: Home or Self Care (Routine Discharge) 05/10/[address] [facility] [place] [place] [address] Lorie Greene MD 05/10/2025 Travel from Last [...] Sex Assigned at Female 11/18/2024 4:50 PM HAMMER REPAIRER Legal Sex Female 6:05 PM CDT Gender Identity Not on file Sexual Orientation Not on file Last Filed Vital Signs Vital Sign Reading Time Taken Comments Blood Pressure 153/84 11/11/2022 7:53 AM HAMMER REPAIRER Pulse 70 11/11/2022 7:53 AM HAMMER REPAIRER Temperature 36.4 C (97.6 F) 11/11/2022 7:53 AM HAMMER REPAIRER Respiratory Rate 18 11/11/2022 7:53 AM HAMMER REPAIRER Oxygen Saturation 95% 11/11/2022 7:53 AM HAMMER REPAIRER Inhaled Oxygen Concentration - - Weight 120.2 kg (265 lb) 11/04/2022 2:26 PM HAMMER REPAIRER Height 175.3 cm (5' 9) 11/04/2022 2:26 PM HAMMER REPAIRER Body Mass Index 39.13 11/04/2022 2:26 PM HAMMER REPAIRER Plan of Treatment Health Maintenance Due Date [...] KASI JEISON DIGI Routine 11/29/2024 3:07 PM HAMMER REPAIRER Encounter for screening mammogram for malignant neoplasm of breast COLONOSCOPY 03/26/2021 11:09 AM CDT from Last 3 Months or Most Recently Relevant to Health Maintenance Results * (ABNORMAL) BASIC METABOLIC PANEL (05/10/2025 7:42 AM CDT) SODIUM S/P/B 140 136 - 145 MMOL/L 05/10/2025 8:02 AM CDT [facility] POTASSIUM S/P/B 4.0 3.5 - 5.1 MMOL/L 05/10/2025 8:02 AM CDT [facility] CHLORIDE S/P/B 105 98 - 107 MMOL/L 05/10/2025 8:02 AM CDT [facility] CO2 24.5 21.0 - 32.0 MMOL/L 05/10/2025 8:02 AM CDT [facility] GLUCOSE 106(H) 70 - 99 MG/DL 05/10/2025 8:02 AM CDT [facility] Comment: FASTING GLUCOSE 100 TO 125 MG/DL IS CONSISTENT WITH IMPAIRED FASTING GLUCOSE. FASTING GLUCOSE >125 MG/DL IS CONSISTENT WITH DIABETES. RANDOM GLUCOSE >200 MG/DL WITH HYPERGLYCEMIC SYMPTOMS IS CONSISTENT WITH DIABETES. PER ADA GUIDELINES BUN 23 6 - 24 MG/DL 05/10/2025 8:02 AM CDT [facility] CREATININE S/P/B 1.13(H) 0.55 - 1.02 MG/DL 05/10/2025 8:02 AM CDT [facility] CALCIUM S/P/B 9.7 8.4 - 10.5 MG/DL 05/10/2025 8:02 AM CDT [facility] ANION GAP 10.5 5.0 - 15.0 MMOL/L 05/10/2025 8:02 AM CDT [facility] OSMOLALITY (CALC) 294 MOSM/KG 025 8:02 AM CDT [facility] Comment:REFERENCE RANGE NOT ESTABLISHED GFR ESTIMATE 57(L) >89 ML/MIN/1. 73 M2 05/10/2025 8:02 AM CDT [facility] GFR NOTES GFR REFERENCE S: 05/10/2025 8:02 AM CDT [facility] Comment: THE ESTIMATED GFR IS CALCULATED [...] us Lorie Greene MD LABORATORY Final Result [facility] [address] [place] [address], * MG SCREENING W KASI JEISON DIGI (11/29/2024 3:07 PM HAMMER REPAIRER) Anatomical Region Laterality Modality Breast Bilateral Mammography 11/29/2024 4:23 PM HAMMER REPAIRER Impressions 11/29/2024 4:24 PM HAMMER REPAIRER IMPRESSION: No suspicious change since the previous exams. Recommendation: 1: Routine Screening Bilateral in 1 Year Assessment: ACR BI-RADS 2 - BENIGN FINDING(S) Ordered By: LORIE GREENE Interpreted By: Carlos Manuel Hay MD, 11/29/2024 4:23 PM Narrative 11/29/2024 4:24 PM HAMMER REPAIRER [address] [place] [address] Examination: Digital screening mammogram with CAD. Clinical [...] Most Recently Relevant to Health Maintenance Insurance [facility] Care Teams Oleomargarine Maker Relationship Specialty Start Date End Date Lorie Greene MD [address] [place] [address] PCP - General INTERNAL MEDICINE 10/28/23
== END 2025-08-02 07:50 | disposition home or self-care (01) ==
LOC: ANHAUDASC 07:50
PROVIDERS: PCP Internal Medicine; Visit Provider Otolaryngology
DX: H93.A2 Pulsatile tinnitus, left ear (principal); H90.3 Sensorineural hearing loss, bilateral; R42 Dizziness and giddiness
CPT/HCPCS: 92557; 92567